=== PATIENT | male | born 1955 | race Caucasian/White ===

== ENCOUNTER 2023-12-02 10:45 | Outpatient (RCR) | payer MEDICARE, SELFPAY ==
[2023-11-11 10:51] VITALS: BP 147/68; PULSE 75; RESP 18; TEMP 36.1; BMI 30.1
--- NOTE | 2023-11-11 11:50 | HP.PCM_ITS ---
History of Present Illness Date of Service: 11/11/23 Chief Complaint: Follow-up for surgical removal of necrotizing fasciitis of perianal and scrotal area. History of Wound: 68-year-old white male on September 22 had surgery at [facility] for necrotizing fasciitis of the perineum and scrotum. Patient states it started about 2 weeks prior that they thought he had a prostate infection and then it just turned started turning black. He has had about 3 surgeries for removal of the necrotic tissue. And at this time is using Vashi to wet-to-dry as treatment. Has been done with antibiotics since mid September according to records. We will reculture today. The area starts in the right scrotum and goes down into the right buttocks cheek near the rectum. We obtained wound cultures today [facility] Home Medications acetaminophen 650 mg tablet,extended release (8 Hour Pain Reliever) 650 mg PO Q4H PRN PRN pain 11/11/23 [History Last Taken Unknown] aspirin 81 mg chewable tablet (Aspirin Childrens) 81 mg PO DAILY 11/11/23 [History Last Taken Unknown] folic acid 1 mg tablet 1 mg PO DAILY 11/11/23 [History Last Taken Unknown] [id number] tablet 1 tab PO DAILY 11/11/23 [History Last Taken Unknown] lisinopril 40 mg tablet 40 mg PO DAILY 11/11/23 [History Last Taken Unknown] ropinirole 2 mg tablet 2 mg PO QHS 11/11/23 [History Last Taken Unknown] thiamine mononitrate (vit B1) 100 mg tablet 100 mg PO DAILY 11/11/23 [History Last Taken Unknown] Allergy/AdvReac Type Severity Reaction Status Date / Time lovastatin Allergy Mild Hives Verified 11/11/23 10:48 Social History Smoking Status: Former smoker ROS Constitutional Constitutional: Reports systems reviewed and no addt'l complaints, except as documented Eyes Eyes: Reports systems reviewed and no addt'l complaints, except as documented ENT HEENT: Reports systems reviewed and no addt'l complaints, except as documented Cardiovascular Cardiovascular: Reports systems reviewed and no addt'l complaints, except as documented Respiratory/Chest Respiratory/Chest: Reports systems reviewed and no addt'l complaints, except as documented Gastrointestinal Gastrointestinal: Reports systems reviewed and no addt'l complaints, except as documented Genitourinary Genitourinary: Reports systems reviewed and no addt'l complaints, except as documented Musculoskeletal Musculoskeletal: Reports systems reviewed and no addt'l complaints, except as documented Integumentary Integumentary: Reports wounds and other Details: Open wound from surgery to the right scrotum to right buttocks cheek Neurologic Neurologic: Reports systems reviewed and no addt'l complaints, except as documented Psychiatric Psychiatric: Reports systems reviewed and no addt'l complaints, except as documented Endocrine Endocrinology: Reports systems reviewed and no addt'l complaints, except as documented Hematologic/Lymphatic Hematologic/Lymphatic: Reports systems reviewed and no addt'l complaints, except as documented Allergic/Immunologic Allergic/Immunologic: Reports systems reviewed and no addt'l complaints, except as documented Vital Signs Vital Signs Vital Signs: 11/11/23 10:51 Temperature 96.9 F L Temperature Source Temporal Pulse Rate 75 Respiratory Rate 18 Blood Pressure 147/68 H Blood Pressure Mean 94 Blood Pressure Source Monitor Blood Pressure Position Semi-Fowlers Blood Pressure Location Left Arm Weight Weight: 210 lb Body Mass Index (BMI) 30.1 Physical Exam Const oriented x3 General Appearance: cooperative Exam Limitations: no limitations HEENT normocephalic Head and Scalp: normal to inspection Face and Sinus: normal facial exam Eyes PERRL Neck full ROM Resp normal respiratory effort Effort and Inspection: able to speak in complete sentences Auscultation: clear to auscultation bilaterally Cardio regular rate and regular rhythm Palpation: normal PMI Rate: regular rate Rhythm: regular rhythm Back/Spine Cervical Spine: cervical ROM normal Extremity normal to inspection Skin Wounds: wounds noted Wound Narrative: Open wound from surgery performed September 25 for necrotizing fasciitis from right scrotum to the right buttocks cheek Neuro oriented x3 Psych Appearance: grossly normal Speech: normal speech Thought Content: normal thought content Judgement: judgement good Debridement Note Debridement Note Post-Debridement Measurements and Additional Note: Post-Debridement Measurements/Treatment - Nurse 1 - General Ulcer Assessment Start: 11/11/23 10:51 Freq: Status: Active Protocol: HARIS Activity Type Activity Date Activity User E-sign Co-sign Detail Recorded Client Recorded Date Recorded By Document 11/11/23 10:51 RB Desktop 11/11/23 10:55 RB 11/11/23 10:51 - Today's Visit Information Type of service Follow-up Visit (Physician/AUTOMOTIVE SOFTWARE ENGINEER ) Arrival Mode Ambulatory Transfer Assistance None Patient Identification Verified (Name & Yes ) Patient Requires Transmission-Based No Precautions Height and Weight Height 5 ft 10 in Weight 210 lb Weight in Pounds 210.0 lbs Body Mass Index (BMI) 30.1 BMI Classification Obese BSA - Laura 2.13 Vital Signs Temperature (97.8 F-99.1 F) 96.9 F L Temperature Source Temporal Pulse Rate (60-100) 75 Pulse Location Monitor Respiratory Rate (12-18) 18 Respiratory rate source Observation Blood Pressure (90/60-120/80) 147/68 H Blood Pressure Mean 94 Source Monitor Position Semi-Fowlers Blood Pressure Location Left Arm Pain Scale: 0-10 Numeric Is Patient Pain Free? Yes Communication Assessment Preferred language Indian Return Agent [place] Required No Able to Read Yes Able to Write Yes Right Hearing Abillity Normal Left Hearing Abillity Normal Visual Assistive Devices Glasses Teaching Assessment Preferences Verbal,Written, Demonstration Readiness To Learn Excellent Willingness to Engage in Self Management Med Activies Readiness to Engage in Self Management Med Activities Anxiety Level Calm Cooperation Cooperative Perception Coherent Interest in Health Problem Asks Questions Education Importance Acknowledges Need Does Patient Smoke tobacco or other No substances Smoking Status Former smoker Functional Assessment Recent Decline in Ability to Perform Denies Any Declines Assistive Device With Patient No Culture/Mormonism/Inside Trucker Cultural/Mormonism Needs that may affect No Treatment Plan Would you allow our hospital boiler operators supervisor to No meet you for the purpose of spiritual/ emotional support? Inside Trucker to contact place of confucianism No Teaching: Wound Center Dressing Your Wound -Person Taught Patient -Teaching Method Discussion, Demonstration -Response to teaching Verbalize understanding - Nurse 1 - General Ulcer Measurement Start: 11/11/23 10:51 Freq: Status: Active Protocol: Activity Type Activity Date Activity User E-sign Co-sign Detail Recorded Client Recorded Date Recorded By Document 11/11/23 10:51 RB Desktop 11/11/23 10:55 RB 11/11/23 10:51 Wound Center Nurse 1 1. scrotum/ R buttocks -Combined with other wound No -Current Size (cm) - Length 13.5 -Current Size (cm) - Width 6 -Current Size (cm) - Depth 3 -Total Square Cm 81.0 -Photo Taken Yes -Tunneling No -Undermining/Tunneling No -Circular Undermining No -Exudate Amt Large -Exudate Type Serosanguineous -Wound Margin Distinct, Outline Attached -Granulation Amt Large (67-100%) -Granulation Quality Red -Slough/Fibrin Yes -Necrosis Amt Medium (34-66%) -Necrotic Tissue Type Adherent Slough -Structure Exposed N/A -Texture (Amelie-wound Skin Appearance) Assessed, Scarring -Moisture (Amelie-wound Skin Appearance) Assessed -Color (Amelie-wound Skin Appearance) Assessed -Temperature (Amelie-wound Skin No Abnormality Appearance) (Pt Warm) -Tenderness on Palpation (Amelie-wound No Skin Appearance) -Ulcer Cleansing Wound Cleanser -Foul Odor after Cleansing No -Anesthetic Used 4% Lidocaine Solution WC - Nurse 2 - General Ulcer CM Notes Start: 11/11/23 10:51 Freq: Status: Active Protocol: Activity Type Activity Date Activity User E-sign Co-sign Detail Recorded Client Recorded Date Recorded By Document 11/11/23 11:15 BM Desktop 11/11/23 11:28 [facility] 11/11/23 11:15 Wound Center Nurse 2 -Time 11:15 -Correct Patient Yes -Correct Side, Site, Position Yes -Correct Procedure Yes -Procedure Performed Yes -Type of Procedure Debridement -Clinical Debridement Subcutaneous -Tissue Removed Subcutaneous -Post Debridement (cm) - Length 15 -Post Debridement (cm) - Width 7 -Post Debridement (cm) - Depth 4.5 -Total Square (Post) (cm) 105 -Area of Debridement (cm) - Length 15 -Area of Debridement (cm) - Width 7 -Total Square (Area) (cm) 105 -Tunneling No -Undermining/Tunneling No -Circular Undermining No -Wound/Ulcer Outcome Not Healed -Ulcer Cleansing Rinsed/ Irrigated with Saline -Foul Odor after Cleansing No -Bioengineered Tissue No -Bleeding Controlled with Pressure -Treatment Response Procedure Tolerated Well -Debridement - Subq, 1st 20sq cm Yes -Debridement, SubQ, ea addt'l 20sq cm 5 or part thereof Pain Scale: 0-10 Numeric Is Patient Pain Free? Yes - Nurse 3 - General Ulcer D/C NN Start: 11/11/23 10:51 Freq: Status: Active Protocol: Activity Type Activity Date Activity User E-sign Co-sign Detail Recorded Client Recorded Date Recorded By Document 11/11/23 11:30 DL Desktop 11/11/23 11:31 DL 11/11/23 11:30 Wound Care Center Nurse 3 1. scrotum/ R buttocks -Ulcer Cleansing Soap and Water -Foul Odor after Cleansing No -Primary Dressing Applied Fibracol Plus 4x4 -Primary Dressing Covered/Secured with Dry Gauze -Other Covering ABD -Fibracol Plus 4x4 1 Treatment Response Procedure Tolerated Well Pain Scale: 0-10 Numeric Is Patient Pain Free? Yes WC - Visit Discharge Discharge Condition Stable Ambulatory Status Ambulatory Transportation Private [facility] Facility Type Home Health Orders Sent Yes Assessment/Plan Assessment/Plan (1) Necrotizing fasciitis: CODE(S): M72.6 - Necrotizing fasciitis (2) Nonhealing surgical wound: CODE(S): T81.89XA - Other complications of procedures, not elsewhere classified, initial encounter QUALIFIERS: Encounter type: initial encounter Qualified Code(s): T81.89XA - Other complications of procedures, not elsewhere classified, initial encounter PLAN: Wash perineal area with antibacterial soap in the shower pat dry Apply Fibracol to wound area cover with gauze and ABDs Daily and follow-up in 1 week Wound cultures obtained will call with results (3) Hyperglycemia due to type 2 diabetes mellitus: CODE(S): E11.65 - Type 2 diabetes mellitus with hyperglycemia QUALIFIERS: Diabetes mellitus intermediate school teacher insulin use: without [facility] use Qualified Code(s): E11.65 - Type 2 diabetes mellitus with hyperglycemia
--- NOTE | 2023-11-16 14:34 | WC ---
SANJEEV AIRBORNE ELECTRONICS ANALYST REVIEWED PTS CX RESULTS. N.O.'S RECEIVED TO START METRONIDAZOLE AND LINEZOLID. ALLERGIES REVIEWED. PT AND HIS SON MIKE MENA CALLED AND UPDATED. RX CALLED TO [facility]. WILL UPDATE [facility].
[2023-11-18 11:06] VITALS: BP 152/76; PULSE 74; RESP 18; TEMP 36.6; BMI 30.1
--- NOTE | 2023-11-18 12:58 | PCM.WC.PN ---
History of Present Illness Date of Service: 11/18/23 Chief Complaint: Follow-up for surgical removal of necrotizing fasciitis of perianal and scrotal area. History of Wound: 68-year-old white male on September 22 had surgery at [facility] for necrotizing fasciitis of the perineum and scrotum. Patient states it started about 2 weeks prior that they thought he had a prostate infection and then it just turned started turning black. He has had about 3 surgeries for removal of the necrotic tissue. And at this time is using Vashi to wet-to-dry as treatment. Has been done with antibiotics since mid September according to records. We will reculture today. The area starts in the right scrotum and goes down into the right buttocks cheek near the rectum. We obtained wound cultures today Progress of Wound: Cultures showed positive cocci and bacteria. Patient has been started on metronidazole and Linzoid.. Tolerating medications well and wound looks 100% better it is smaller there is skin now on his scrotum and it is coming down into his groin area also. Continue using Fibracol and taking the medications. Subjective Subjective Patient states home health care will not do wound care and will not give him products. Patient has been doing his own wound care Objective Data Objective Data Again the wound looks very good measurements are very good much smaller than what they were last week skin is developing and healing Vital Signs: Vital Signs Temp Pulse Resp BP 98 F 74 18 152/76 H 11/18/23 11:06 11/18/23 11:06 11/18/23 11:06 11/18/23 11:06 Weight: 210 lb Body Mass Index (BMI) 30.1 Lab / Micro Data Attestation: I reviewed the patient's lab results. Micro: Microbiology 11/11/23 11:20 Scrotal Abcess Gram Stain - Final 11/11/23 11:20 Scrotal Abcess Wound Culture - Final ESBL Klebsiella pneumoniae pne Corynebacterium striatum Corynebacterium amycolatum Vancomycin Resist. E. faecium 11/11/23 11:20 Scrotal Abcess Anaerobic Culture - Final Bacteroides fragilis Physical Exam Const oriented x3 General Appearance: cooperative Exam Limitations: no limitations HEENT normocephalic Head and Scalp: normal to inspection Face and Sinus: normal facial exam Eyes PERRL Neck full ROM Resp normal respiratory effort Effort and Inspection: able to speak in complete sentences Auscultation: clear to auscultation bilaterally Cardio regular rate and regular rhythm Palpation: normal PMI Rate: regular rate Rhythm: regular rhythm Back/Spine Cervical Spine: cervical ROM normal Extremity normal to inspection Skin Wounds: wounds noted Wound Narrative: Open wound from surgery performed September 25 for necrotizing fasciitis from right scrotum to the right buttocks cheek Neuro oriented x3 Psych Appearance: grossly normal Speech: normal speech Thought Content: normal thought content Judgement: judgement good Debridement Note Debridement Note Wound debrided: Groin cluster Laterality: Right Type of Debridement: Excisional debridement Anesthesia Used: 5% Lidocaine Gel Depth: Down to and including healthy tissue and in the subcutaneous layer Percentage of wound debrided: 100 Instrument Used: 7mm curette Tissue Removed: Fibrin devitalized tissue Severity: Fat Layer Exposed Amount of bleeding with debridement: Mild Bleeding Controlled with: Compression and gauze Patient tolerated procedure: Patient tolerated procedure well Post-Debridement Measurements and Additional Note: Post-Debridement Measurements/Treatment - Nurse 1 - General Ulcer Assessment Start: 11/11/23 10:51 Freq: Status: Active Protocol: HARIS Activity Type Activity Date Activity User E-sign Co-sign Detail Recorded Client Recorded Date Recorded By Document 11/11/23 10:51 Desktop 11/11/23 10:55 RB Document 11/18/23 11:06 wound center 11/18/23 11:07 RB 11/11/23 11/18/23 10:51 11:06 - Today's Visit Information Type of service Follow-up Visit Follow-up Visit (Physician/LIFE ASSURANCE REPRESENTATIVE (Physician/LIFE ASSURANCE REPRESENTATIVE ) ) Arrival Mode Ambulatory Ambulatory Transfer Assistance None None Patient Identification Verified (Name & Yes Yes ) Patient Requires Transmission-Based No No Precautions Height and Weight Height 5 ft 10 in Weight 210 lb Weight in Pounds 210.0 lbs Body Mass Index (BMI) 30.1 30.1 BMI Classification Obese Obese BSA - Laura 2.13 Vital Signs Temperature (97.8 F-99.1 F) 96.9 F L 98 F Temperature Source Temporal Temporal Pulse Rate (60-100) 75 74 Pulse Location Monitor Monitor Respiratory Rate (12-18) 18 18 Respiratory rate source Observation Observation Blood Pressure (90/60-120/80) 147/68 H 152/76 H Blood Pressure Mean (mm Hg) 94 101 Source Monitor Monitor Position Semi-Fowlers Semi-Fowlers Blood Pressure Location Left Arm Left Arm History Since Last Visit- (Skip if this is Patient's initial visit) Have you changed medications since your No last visit? Any new allergies or adverse reactions No Had a fall/change in ADL's that may No increase risk of falls Signs or symptoms of abuse and/or No neglect since last visit Have you been in the hospital since your No last visit? Has dressing in place as prescribed Yes Has compression in place as prescribed No Has offloadiing in place as prescribed No Experienced any changes in pain level or No management Pain Scale: 0-10 Numeric Is Patient Pain Free? Yes Yes Communication Assessment Preferred language Mongolian Manager Training And Development Required No Able to Read Yes Able to Write Yes Right Hearing Abillity Normal Left Hearing Abillity Normal Visual Assistive Devices Glasses Teaching Assessment Preferences Verbal,Written, Demonstration Readiness To Learn Excellent Willingness to Engage in Self Management Med Activies Readiness to Engage in Self Management Med Activities Anxiety Level Calm Cooperation Cooperative Perception Coherent Interest in Health Problem Asks Questions Education Importance Acknowledges Need Does Patient Smoke tobacco or other No substances Smoking Status Former smoker Functional Assessment Recent Decline in Ability to Perform Denies Any Declines Assistive Device With Patient No Culture/Shinto/Wafer Fab Technician Cultural/Shinto Needs that may affect No Treatment Plan Would you allow our hospital lost charge card clerk to No meet you for the purpose of spiritual/ emotional support? Wafer Fab Technician to contact place of protestant No Teaching: Wound Center Dressing Your Wound -Person Taught Patient -Teaching Method Discussion, Demonstration -Response to teaching Verbalize understanding WC - Nurse 1 - General Ulcer Measurement Start: 11/11/23 10:51 Freq: Status: Active Protocol: Activity Type Activity Date Activity User E-sign Co-sign Detail Recorded Client Recorded Date Recorded By Document 11/11/23 10:51 RB Desktop 11/11/23 10:55 RB Document 11/18/23 11:06 RB wound center 11/18/23 11:07 RB 11/11/23 11/18/23 10:51 11:06 Wound Center Nurse 1 1. scrotum/ R buttocks -Combined with other wound No No -Current Size (cm) - Length 13.5 15.5 -Current Size (cm) - Width 6 5 -Current Size (cm) - Depth 3 2.5 -Total Square Cm 81.0 77.5 -Photo Taken Yes -Tunneling No No -Undermining/Tunneling No No -Circular Undermining No No -Exudate Amt Large Large -Exudate Type Serosanguineous Serosanguineous -Wound Margin Distinct, Distinct, Outline Outline Attached Attached -Granulation Amt Large (67-100%) Large (67-100%) -Granulation Quality Red Mckenna,Red -Slough/Fibrin Yes Yes -Necrosis Amt Medium (34-66%) Small (1-33%) -Necrotic Tissue Type Adherent Slough Adherent Slough -Structure Exposed N/A N/A -Texture (Amelie-wound Skin Appearance) Assessed, Assessed, Scarring Scarring -Moisture (Amelie-wound Skin Appearance) Assessed Assessed -Color (Amelie-wound Skin Appearance) Assessed Assessed -Temperature (Amelie-wound Skin No Abnormality No Abnormality Appearance) (Pt Warm) (Pt Warm) -Tenderness on Palpation (Amelie-wound No No Skin Appearance) -Ulcer Cleansing Wound Cleanser Wound Cleanser -Foul Odor after Cleansing No No -Anesthetic Used 4% Lidocaine 4% Lidocaine Solution Solution WC - Nurse 2 - General Ulcer CM Notes Start: 11/11/23 10:51 Freq: Status: Active Protocol: Activity Type Activity Date Activity User E-sign Co-sign Detail Recorded Client Recorded Date Recorded By Document 11/11/23 11:15 [facility] Desktop 11/11/23 11:28 [facility] Document 11/18/23 11:11 [facility] wound center 11/18/23 11:16 [facility] 11/11/23 11/18/23 11:15 11:11 Wound Center Nurse 2 1. scrotum/ R buttocks -Time 11:15 11:11 -Correct Patient Yes Yes -Correct Side, Site, Position Yes Yes -Correct Procedure Yes Yes -Procedure Performed Yes Yes -Type of Procedure Debridement Debridement -Clinical Debridement Subcutaneous Subcutaneous -Tissue Removed Subcutaneous Subcutaneous -Post Debridement (cm) - Length 15 11.5 -Post Debridement (cm) - Width 7 2.5 -Post Debridement (cm) - Depth 4.5 2 -Total Square (Post) (cm) 105 28.75 -Area of Debridement (cm) - Length 15 11.5 -Area of Debridement (cm) - Width 7 2.5 -Total Square (Area) (cm) 105 28.75 -Tunneling No No -Undermining/Tunneling No No -Circular Undermining No No -Wound/Ulcer Outcome Not Healed Not Healed -Ulcer Cleansing Rinsed/ Rinsed/ Irrigated with Irrigated with Saline Saline -Foul Odor after Cleansing No No -Bioengineered Tissue No No -Bleeding Controlled with Pressure Pressure -Treatment Response Procedure Procedure Tolerated Well Tolerated Well -Debridement - Subq, 1st 20sq cm Yes Yes -Debridement, SubQ, ea addt'l 20sq cm 5 9 or part thereof Pain Scale: 0-10 Numeric Is Patient Pain Free? Yes Yes - Nurse 3 - General Ulcer D/C NN Start: 11/11/23 10:51 Freq: Status: Active Protocol: Activity Type Activity Date Activity User E-sign Co-sign Detail Recorded Client Recorded Date Recorded By Document 11/11/23 11:30 DL Desktop 11/11/23 11:31 DL Document 11/18/23 11:29 DL [id number] 11/18/23 11:30 DL 11/11/23 11/18/23 11:30 11:29 Wound Care Center Nurse 3 1. scrotum/ R buttocks -Ulcer Cleansing Soap and Water Soap and Water -Foul Odor after Cleansing No No -Primary Dressing Applied Fibracol Plus Fibracol Plus 4x4 4x4 -Primary Dressing Covered/Secured with Dry Gauze Dry Gauze, Secured with Tape -Other Covering ABD ABD -Fibracol Plus 4x4 1 2 Treatment Response Procedure Procedure Tolerated Well Tolerated Well Pain Scale: 0-10 Numeric Is Patient Pain Free? Yes Yes - Visit Discharge Discharge Condition Stable Stable Ambulatory Status Ambulatory Ambulatory Transportation Private Auto Private [facility] Facility Type Home Health Home Health Orders Sent Yes Yes Assessment/Plan Assessment/Plan (1) Necrotizing fasciitis: CODE(S): M72.6 - Necrotizing fasciitis (2) Nonhealing surgical wound: CODE(S): T81.89XA - Other complications of procedures, not elsewhere classified, initial encounter QUALIFIERS: Encounter type: initial encounter Qualified Code(s): T81.89XA - Other complications of procedures, not elsewhere classified, initial encounter PLAN: Wash perineal area with antibacterial soap in the shower pat dry Apply Fibracol to wound area cover with gauze and ABDs Daily and follow-up in 1 week (3) Hyperglycemia due to type 2 diabetes mellitus: CODE(S): E11.65 - Type 2 diabetes mellitus with hyperglycemia QUALIFIERS: Diabetes mellitus manager terminal insulin use: without manager terminal use Qualified Code(s): E11.65 - Type 2 diabetes mellitus with hyperglycemia (4) Infected open wound: CODE(S): T14.8XXA - Other injury of unspecified body region, initial encounter; L08.9 - Local infection of the skin and subcutaneous tissue, unspecified PLAN: Taking metronidazole 250 mg 3 times daily for 14 days and Lenzoid 600 mg twice daily for 10 days Tolerating antibiotic therapy well
[2023-11-25 10:58] VITALS: BP 122/66; PULSE 83; RESP 18; TEMP 36.1; BMI 30.1
--- NOTE | 2023-11-25 12:48 | PN.PCM_ITS ---
History of Present Illness Date of Service: 11/25/23 Chief Complaint: Follow-up for surgical removal of necrotizing fasciitis of perianal and scrotal area. History of Wound: 68-year-old white male on September 22 had surgery at [facility] for necrotizing fasciitis of the perineum and scrotum. Patient states it started about 2 weeks prior that they thought he had a prostate infection and then it just turned started turning black. He has had about 3 surgeries for removal of the necrotic tissue. And at this time is using Vashi to wet-to-dry as treatment. Has been done with antibiotics since mid September according to records. We will reculture today. The area starts in the right scrotum and goes down into the right buttocks cheek near the rectum. We obtained wound cultures today Progress of Wound: Cultures showed positive cocci and bacteria. Patient has been started on metronidazole and Linzoid.. Tolerating medications well and wound looks 100% better it is smaller there is skin now on his scrotum and it is coming down into his groin area also. Continue using Fibracol and taking the medications. Continues to improve every week Subjective Subjective Patient is pleased with outcomes Objective Data Objective Data Doing really well getting a lot of skin buds and getting skin over the scrotal sac and down into the groin. Vital Signs: Vital Signs Temp Pulse Resp BP 97 F L 83 18 122/66 H 11/25/23 10:58 11/25/23 10:58 11/25/23 10:58 11/25/23 10:58 Weight: 210 lb Body Mass Index (BMI) 30.1 Lab / Micro Data Micro: Microbiology 11/11/23 11:20 Scrotal Abcess Gram Stain - Final 11/11/23 11:20 Scrotal Abcess Wound Culture - Final ESBL Klebsiella pneumoniae pne Corynebacterium striatum Corynebacterium amycolatum Vancomycin Resist. E. faecium 11/11/23 11:20 Scrotal Abcess Anaerobic Culture - Final Bacteroides fragilis Physical Exam Const oriented x3 General Appearance: cooperative Exam Limitations: no limitations HEENT normocephalic Head and Scalp: normal to inspection Face and Sinus: normal facial exam Eyes PERRL Neck full ROM Resp normal respiratory effort Effort and Inspection: able to speak in complete sentences Auscultation: clear to auscultation bilaterally Cardio regular rate and regular rhythm Palpation: normal PMI Rate: regular rate Rhythm: regular rhythm Back/Spine Cervical Spine: cervical ROM normal Extremity normal to inspection Skin Wounds: wounds noted Wound Narrative: Open wound from surgery performed September 25 for necrotizing fasciitis from right scrotum to the right buttocks cheek Neuro oriented x3 Psych Appearance: grossly normal Speech: normal speech Thought Content: normal thought content Judgement: judgement good Debridement Note Debridement Note Wound debrided: Groin cluster Laterality: Right Type of Debridement: Excisional debridement Anesthesia Used: 5% Lidocaine Gel Depth: Down to and including healthy tissue and in the subcutaneous layer Percentage of wound debrided: 100 Instrument Used: 7mm curette Tissue Removed: Fibrin devitalized tissue Severity: Fat Layer Exposed Amount of bleeding with debridement: Mild Bleeding Controlled with: Compression and gauze Patient tolerated procedure: Patient tolerated procedure well Post-Debridement Measurements and Additional Note: Post-Debridement Measurements/Treatment - Nurse 1 - General Ulcer Assessment Start: 11/11/23 10:51 Freq: Status: Active Protocol: HARIS Activity Type Activity Date Activity User E-sign Co-sign Detail Recorded Client Recorded Date Recorded By Document 11/11/23 10:51 Desktop 11/11/23 10:55 RB Document 11/18/23 11:06 RB wound center 11/18/23 11:07 RB Document 11/25/23 10:58 RB wound center 11/25/23 11:00 RB 11/11/23 11/18/23 11/25/23 10:51 11:06 10:58 - Today's Visit Information Type of service Follow-up Visit Follow-up Visit Follow-up Visit (Physician/SPLIT LEATHER DEPARTMENT SUPERVISOR (Physician/SPLIT LEATHER DEPARTMENT SUPERVISOR (Physician/SPLIT LEATHER DEPARTMENT SUPERVISOR ) ) ) Arrival Mode Ambulatory Ambulatory Ambulatory Transfer Assistance None None None Patient Identification Verified (Name & Yes Yes Yes ) Patient Requires Transmission-Based No No No Precautions Height and Weight Height 5 ft 10 in Weight 210 lb Weight in Pounds 210.0 lbs Body Mass Index (BMI) 30.1 30.1 30.1 BMI Classification Obese Obese Obese BSA - Laura 2.13 Vital Signs Temperature (97.8 F-99.1 F) 96.9 F L 98 F 97 F L Temperature Source Temporal Temporal Temporal Pulse Rate (60-100) 75 74 83 Pulse Location Monitor Monitor Monitor Respiratory Rate (12-18) 18 18 18 Respiratory rate source Observation Observation Observation Blood Pressure (90/60-120/80) 147/68 H 152/76 H 122/66 H Blood Pressure Mean (mm Hg) 94 101 84 Source Monitor Monitor Monitor Position Semi-Fowlers Semi-Fowlers Semi-Fowlers Blood Pressure Location Left Arm Left Arm Right Arm History Since Last Visit- (Skip if this is Patient's initial visit) Have you changed medications since your No No last visit? Any new allergies or adverse reactions No No Had a fall/change in ADL's that may No No increase risk of falls Signs or symptoms of abuse and/or No No neglect since last visit Have you been in the hospital since your No No last visit? Has dressing in place as prescribed Yes Yes Has compression in place as prescribed No No Has offloadiing in place as prescribed No No Experienced any changes in pain level or No No management Pain Scale: 0-10 Numeric Is Patient Pain Free? Yes Yes Yes Communication Assessment Preferred language [employer] [employer] Service Team Member Required No Able to Read Yes Able to Write Yes Right Hearing Abillity Normal Left Hearing Abillity Normal Visual Assistive Devices Glasses Teaching Assessment Preferences Verbal,Written, Demonstration Readiness To Learn Excellent Willingness to Engage in Self Management Med Activies Readiness to Engage in Self Management Med Activities Anxiety Level Calm Cooperation Cooperative Perception Coherent Interest in Health Problem Asks Questions Education Importance Acknowledges Need Does Patient Smoke tobacco or other No substances Smoking Status Former smoker Functional Assessment Recent Decline in Ability to Perform Denies Any Declines Assistive Device With Patient No Culture/Anabaptist/Shopping Centre Manager Cultural/Anabaptist Needs that may affect No Treatment Plan Would you allow our hospital financial reserve clerk to No meet you for the purpose of spiritual/ emotional support? Shopping Centre Manager to contact place of episcopal No Teaching: Wound Center Dressing Your Wound -Person Taught Patient -Teaching Method Discussion, Demonstration -Response to teaching Verbalize understanding WC - Nurse 1 - General Ulcer Measurement Start: 11/11/23 10:51 Freq: Status: Active Protocol: Activity Type Activity Date Activity User E-sign Co-sign Detail Recorded Client Recorded Date Recorded By Document 11/11/23 10:51 RB Desktop 11/11/23 10:55 RB Document 11/18/23 11:06 RB wound center 11/18/23 11:07 RB Document 11/25/23 10:58 RB wound center 11/25/23 11:00 RB 11/11/23 11/18/23 11/25/23 10:51 11:06 10:58 Wound Center Nurse 1 1. scrotum/ R buttocks -Combined with other wound No No No -Current Size (cm) - Length 13.5 15.5 11.5 -Current Size (cm) - Width 6 5 2.8 -Current Size (cm) - Depth 3 2.5 2 -Total Square Cm 81.0 77.5 32.20 -Photo Taken Yes -Tunneling No No No -Undermining/Tunneling No No No -Circular Undermining No No No -Exudate Amt Large Large Large -Exudate Type Serosanguineous Serosanguineous Serosanguineous -Wound Margin Distinct, Distinct, Distinct, Outline Outline Outline Attached Attached Attached -Granulation Amt Large (67-100%) Large (67-100%) Large (67-100%) -Granulation Quality Red [place],Red [place],Red -Slough/Fibrin Yes Yes Yes -Necrosis Amt Medium (34-66%) Small (1-33%) Small (1-33%) -Necrotic Tissue Type Adherent Slough Adherent Slough Adherent Slough -Structure Exposed N/A N/A N/A -Texture (Amelie-wound Skin Appearance) Assessed, Assessed, Assessed, Scarring Scarring Scarring -Moisture (Amelie-wound Skin Appearance) Assessed Assessed Assessed -Color (Amelie-wound Skin Appearance) Assessed Assessed Assessed -Temperature (Amelie-wound Skin No Abnormality No Abnormality No Abnormality Appearance) (Pt Warm) (Pt Warm) (Pt Warm) -Tenderness on Palpation (Amelie-wound No No No Skin Appearance) -Ulcer Cleansing Wound Cleanser Wound Cleanser Wound Cleanser -Foul Odor after Cleansing No No No -Anesthetic Used 4% Lidocaine 4% Lidocaine 4% Lidocaine Solution Solution Solution WC - Nurse 2 - General Ulcer CM Notes Start: 11/11/23 10:51 Freq: Status: Active Protocol: Activity Type Activity Date Activity User E-sign Co-sign Detail Recorded Client Recorded Date Recorded By Document 11/11/23 11:15 [facility] Desktop 11/11/23 11:28 [facility] Document 11/18/23 11:11 [facility] wound center 11/18/23 11:16 [facility] Document 11/25/23 11:05 [facility] [id number] 11/25/23 11:11 [facility] 05/02/2611/18/23 11/25/23 11:15 11:11 11:05 Wound Center Nurse 2 1. scrotum/ R buttocks -Time 11:15 11:11 11:05 -Correct Patient Yes Yes Yes -Correct Side, Site, Position Yes Yes Yes -Correct Procedure Yes Yes Yes -Procedure Performed Yes Yes Yes -Type of Procedure Debridement Debridement Debridement -Clinical Debridement Subcutaneous Subcutaneous Subcutaneous -Tissue Removed Subcutaneous Subcutaneous Subcutaneous -Post Debridement (cm) - Length 15 11.5 14.5 -Post Debridement (cm) - Width 7 2.5 3 -Post Debridement (cm) - Depth 4.5 2 0.1 -Total Square (Post) (cm) 105 28.75 43.5 -Area of Debridement (cm) - Length 15 11.5 14.5 -Area of Debridement (cm) - Width 7 2.5 3 -Total Square (Area) (cm) 105 28.75 43.5 -Tunneling No No No -Undermining/Tunneling No No No -Circular Undermining No No No -Wound/Ulcer Outcome Not Healed Not Healed Not Healed -Ulcer Cleansing Rinsed/ Rinsed/ Rinsed/ Irrigated with Irrigated with Irrigated with Saline Saline Saline -Foul Odor after Cleansing No No No -Bioengineered Tissue No No No -Bleeding Controlled with Pressure Pressure Pressure -Treatment Response Procedure Procedure Procedure Tolerated Well Tolerated Well Tolerated Well -Offloading No -Debridement - Subq, 1st 20sq cm Yes Yes Yes -Debridement, SubQ, ea addt'l 20sq cm 5 9 2 or part thereof Pain Scale: 0-10 Numeric Is Patient Pain Free? Yes Yes Yes - Nurse 3 - General Ulcer D/C NN Start: 11/11/23 10:51 Freq: Status: Active Protocol: Activity Type Activity Date Activity User E-sign Co-sign Detail Recorded Client Recorded Date Recorded By Document 11/11/23 11:30 DL Desktop 11/11/23 11:31 DL Document 11/18/23 11:29 DL [id number] 11/18/23 11:30 DL Document 11/25/23 11:13 [facility] [id number] 11/25/23 11:13 [facility] 11/11/23 11/18/23 11/25/23 11:30 11:29 11:13 Wound Care Center Nurse 3 1. 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 Yes Yes Yes WC - Visit Discharge Discharge Condition Stable Stable Stable Ambulatory Status Ambulatory Ambulatory Ambulatory Transportation Private Auto Private Auto Private Auto Facility Type Home Health Home Health Home Health Orders Sent Yes Yes Assessment/Plan Assessment/Plan (1) Necrotizing fasciitis: CODE(S): M72.6 - Necrotizing fasciitis (2) Nonhealing surgical wound: CODE(S): T81.89XA - Other complications of procedures, not elsewhere classified, initial encounter QUALIFIERS: Encounter type: initial encounter Qualified Code(s): T81.89XA - Other complications of procedures, not elsewhere classified, initial encounter PLAN: Wash perineal area with antibacterial soap in the shower pat dry Apply Fibracol to wound area cover with gauze and ABDs Daily and follow-up in 1 week (3) Hyperglycemia due to type 2 diabetes mellitus: CODE(S): E11.65 - Type 2 diabetes mellitus with hyperglycemia QUALIFIERS: Diabetes mellitus penitentiary insulin use: without buttermaker use Qualified Code(s): E11.65 - Type 2 diabetes mellitus with hyperglycemia (4) Infected open wound: CODE(S): T14.8XXA - Other injury of unspecified body region, initial encounter; L08.9 - Local infection of the skin and subcutaneous tissue, unspecified PLAN: Continue taking metronidazole 250 mg 3 times daily for 14 days and Lenzoid 600 mg twice daily for 10 days Tolerating antibiotic therapy well
[2023-12-02 11:27] VITALS: BP 150/60; PULSE 56; RESP 18; TEMP 35.9; BMI 30.1
--- NOTE | 2023-12-02 13:35 | PCM.WC.PN ---
History of Present Illness Date of Service: 12/02/23 Chief Complaint: Follow-up for surgical removal of necrotizing fasciitis of perianal and scrotal area. History of Wound: 68-year-old white male on September 22 had surgery at [facility] for necrotizing fasciitis of the perineum and scrotum. Patient states it started about 2 weeks prior that they thought he had a prostate infection and then it just turned started turning black. He has had about 3 surgeries for removal of the necrotic tissue. And at this time is using Vashi to wet-to-dry as treatment. Has been done with antibiotics since mid September according to records. We will reculture today. The area starts in the right scrotum and goes down into the right buttocks cheek near the rectum. We obtained wound cultures today Progress of Wound: Cultures showed positive cocci and bacteria. Patient has been started on metronidazole and Linzoid.. Tolerating medications well and wound looks 100% better it is smaller there is skin now on his scrotum and it is coming down into his groin area also. Continue using Fibracol and taking the medications. Continues to improve every week Subjective Subjective Patient is pleased with outcomes and sees a Objective Data Objective Data As stated above edging is healing well and creeping across with good approximation of getting some tissue across the scrotum and into the groin area. There are beads of new skin apparent. All is beefy red. Debrided edges very well so skin will come across patient denies any pain and is doing well with dressings. Vital Signs: Vital Signs Temp Pulse Resp BP 96.6 F L 56 L 18 150/60 H 12/02/23 11:27 12/02/23 11:27 12/02/23 11:27 12/02/23 11:27 Weight: 210 lb Body Mass Index (BMI) 30.1 Lab / Micro Data Attestation: I reviewed the patient's lab results. Micro: Microbiology 11/11/23 11:20 Scrotal Abcess Gram Stain - Final 11/11/23 11:20 Scrotal Abcess Wound Culture - Final ESBL Klebsiella pneumoniae pne Corynebacterium striatum Corynebacterium amycolatum Vancomycin Resist. E. faecium 11/11/23 11:20 Scrotal Abcess Anaerobic Culture - Final Bacteroides fragilis Physical Exam Const oriented x3 General Appearance: cooperative Exam Limitations: no limitations HEENT normocephalic Head and Scalp: normal to inspection Face and Sinus: normal facial exam Eyes PERRL Neck full ROM Resp normal respiratory effort Effort and Inspection: able to speak in complete sentences Auscultation: clear to auscultation bilaterally Cardio regular rate and regular rhythm Palpation: normal PMI Rate: regular rate Rhythm: regular rhythm Back/Spine Cervical Spine: cervical ROM normal Extremity normal to inspection Skin Wounds: wounds noted Wound Narrative: Open wound from surgery performed September 25 for necrotizing fasciitis from right scrotum to the right buttocks cheek Neuro oriented x3 Psych Appearance: grossly normal Speech: normal speech Thought Content: normal thought content Judgement: judgement good Debridement Note Debridement Note Wound debrided: Groin cluster Laterality: Right Type of Debridement: Excisional debridement Anesthesia Used: 5% Lidocaine Gel Depth: Down to and including healthy tissue and in the subcutaneous layer Percentage of wound debrided: 100 Instrument Used: 7mm curette Tissue Removed: Fibrin devitalized tissue Severity: Fat Layer Exposed Amount of bleeding with debridement: Mild Bleeding Controlled with: Compression and gauze Patient tolerated procedure: Patient tolerated procedure well Post-Debridement Measurements and Additional Note: Post-Debridement Measurements/Treatment [facility] Nurse 1 - General Ulcer Assessment Start: 11/11/23 10:51 Freq: Status: Active Protocol: HARIS Activity Type Activity Date Activity User E-sign Co-sign Detail Recorded Client Recorded Date Recorded By Document 11/11/23 10:51 Desktop 11/11/23 10:55 RB Document 11/18/23 11:06 RB wound center 11/18/23 11:07 RB Document 11/25/23 10:58 wound center 11/25/23 11:00 RB Document 12/02/23 11:27 wound cnter 12/02/23 11:34 RB 11/11/23 11/18/23 11/25/23 10:51 11:06 10:58 - Today's Visit Information Type of service Follow-up Visit Follow-up Visit Follow-up Visit (Physician/ATM MANAGER (Physician/ATM MANAGER (Physician/ATM MANAGER ) ) ) Arrival Mode Ambulatory Ambulatory Ambulatory Transfer Assistance None None None Patient Identification Verified (Name & Yes Yes Yes ) Patient Requires Transmission-Based No No No Precautions Height and Weight Height 5 ft 10 in Weight 210 lb Weight in Pounds 210.0 lbs Body Mass Index (BMI) 30.1 30.1 30.1 BMI Classification Obese Obese Obese BSA - Laura 2.13 Vital Signs Temperature (97.8 F-99.1 F) 96.9 F L 98 F 97 F L Temperature Source Temporal Temporal Temporal Pulse Rate (60-100) 75 74 83 Pulse Location Monitor Monitor Monitor Respiratory Rate (12-18) 18 18 18 Respiratory rate source Observation Observation Observation Blood Pressure (90/60-120/80) 147/68 H 152/76 H 122/66 H Blood Pressure Mean (mm Hg) 94 101 84 Source Monitor Monitor Monitor Position Semi-Fowlers Semi-Fowlers Semi-Fowlers Blood Pressure Location Left Arm Left Arm Right Arm History Since Last Visit- (Skip if this is Patient's initial visit) Have you changed medications since your No No last visit? Any new allergies or adverse reactions No No Had a fall/change in ADL's that may No No increase risk of falls Signs or symptoms of abuse and/or No No neglect since last visit Have you been in the hospital since your No No last visit? Has dressing in place as prescribed Yes Yes Has compression in place as prescribed No No Has offloadiing in place as prescribed No No Experienced any changes in pain level or No No management Pain Scale: 0-10 Numeric Is Patient Pain Free? Yes Yes Yes Communication Assessment Preferred language Upper Sorbian [employer] Pipe Offbearer Required No Able to Read Yes Able to Write Yes Right Hearing Abillity Normal Left Hearing Abillity Normal Visual Assistive Devices Glasses Teaching Assessment Preferences Verbal,Written, Demonstration Readiness To Learn Excellent Willingness to Engage in Self Management Med Activies Readiness to Engage in Self Management Med Activities Anxiety Level Calm Cooperation Cooperative Perception Coherent Interest in Health Problem Asks Questions Education Importance Acknowledges Need Does Patient Smoke tobacco or other No substances Smoking Status Former smoker Functional Assessment Recent Decline in Ability to Perform Denies Any Declines Assistive Device With Patient No Culture/Sabianism/Credit Rating Checker Cultural/Sabianism Needs that may affect No Treatment Plan Would you allow our hospital service unit operator to No meet you for the purpose of spiritual/ emotional support? Credit Rating Checker to contact place of spiritism No Teaching: Wound Center Dressing Your Wound -Person Taught Patient -Teaching Method Discussion, Demonstration -Response to teaching Verbalize understanding 12/02/23 11:27 WC - Today's Visit Information Type of service Follow-up Visit (Physician/ATM MANAGER ) Arrival Mode Ambulatory Transfer Assistance None Patient Identification Verified (Name & Yes ) Patient Requires Transmission-Based No Precautions Height and Weight Height Weight Weight in Pounds Body Mass Index (BMI) 30.1 BMI Classification Obese BSA - Laura Vital Signs Temperature (97.8 F-99.1 F) 96.6 F L Temperature Source Temporal Pulse Rate (60-100) 56 L Pulse Location Monitor Respiratory Rate (12-18) 18 Respiratory rate source Observation Blood Pressure (90/60-120/80) 150/60 H Blood Pressure Mean (mm Hg) 90 Source Monitor Position Semi-Fowlers Blood Pressure Location Left Arm History Since Last Visit- (Skip if this is Patient's initial visit) Have you changed medications since your No last visit? Any new allergies or adverse reactions No Had a fall/change in ADL's that may No increase risk of falls Signs or symptoms of abuse and/or No neglect since last visit Have you been in the hospital since your No last visit? Has dressing in place as prescribed Yes Has compression in place as prescribed No Has offloadiing in place as prescribed No Experienced any changes in pain level or No management Pain Scale: 0-10 Numeric Is Patient Pain Free? Yes Communication Assessment Preferred sign language translator Required Able to Read Able to Write Right Hearing Abillity Left Hearing Abillity Visual Assistive Devices Teaching Assessment Preferences Readiness To Learn Willingness to Engage in Self Management Activies Readiness to Engage in Self Management Activities Anxiety Level Cooperation Perception Interest in Health Problem Education Importance Does Patient Smoke tobacco or other substances Smoking Status Functional Assessment Recent Decline in Ability to Perform Assistive Device With Patient Culture/Sabianism/Credit Rating Checker Cultural/Sabianism Needs that may affect Treatment Plan Would you allow our hospital service unit operator to meet you for the purpose of spiritual/ emotional support? Credit Rating Checker to contact place of spiritism Teaching: Wound Center Dressing Your Wound -Person Taught -Teaching Method -Response to teaching WC - Nurse 1 - General Ulcer Measurement Start: 11/11/23 10:51 Freq: Status: Active Protocol: Activity Type Activity Date Activity User E-sign Co-sign Detail Recorded Client Recorded Date Recorded By Document 11/11/23 10:51 RB Desktop 11/11/23 10:55 RB Document 11/18/23 11:06 RB wound center 11/18/23 11:07 RB Document 11/25/23 10:58 RB wound center 11/25/23 11:00 RB Document 12/02/23 11:27 RB wound cnter 12/02/23 11:34 RB 11/11/23 11/18/23 11/25/23 10:51 11:06 10:58 Wound Center Nurse 1 1. scrotum/ R buttocks -Combined with other wound No No No -Current Size (cm) - Length 13.5 15.5 11.5 -Current Size (cm) - Width 6 5 2.8 -Current Size (cm) - Depth 3 2.5 2 -Total Square Cm 81.0 77.5 32.20 -Photo Taken Yes -Tunneling No No No -Undermining/Tunneling No No No -Circular Undermining No No No -Exudate Amt Large Large Large -Exudate Type Serosanguineous Serosanguineous Serosanguineous -Wound Margin Distinct, Distinct, Distinct, Outline Outline Outline Attached Attached Attached -Granulation Amt Large (67-100%) Large (67-100%) Large (67-100%) -Granulation Quality Red Ahmeek,Red Ahmeek,Red -Slough/Fibrin Yes Yes Yes -Necrosis Amt Medium (34-66%) Small (1-33%) Small (1-33%) -Necrotic Tissue Type Adherent Slough Adherent Slough Adherent Slough -Structure Exposed N/A N/A N/A -Texture (Amelie-wound Skin Appearance) Assessed, Assessed, Assessed, Scarring Scarring Scarring -Moisture (Amelie-wound Skin Appearance) Assessed Assessed Assessed -Color (Amelie-wound Skin Appearance) Assessed Assessed Assessed -Temperature (Amelie-wound Skin No Abnormality No Abnormality No Abnormality Appearance) (Pt Warm) (Pt Warm) (Pt Warm) -Tenderness on Palpation (Amelie-wound No No No Skin Appearance) -Ulcer Cleansing Wound Cleanser Wound Cleanser Wound Cleanser -Foul Odor after Cleansing No No No -Anesthetic Used 4% Lidocaine 4% Lidocaine 4% Lidocaine Solution Solution Solution 12/02/23 11:27 Wound Center Nurse 1 1. scrotum/ R buttocks -Combined with other wound No -Current Size (cm) - Length 12.5 -Current Size (cm) - Width 3 -Current Size (cm) - Depth 0.1 -Total Square Cm 37.5 -Photo Taken -Tunneling No -Undermining/Tunneling No -Circular Undermining No -Exudate Amt Large -Exudate Type Serosanguineous -Wound Margin Distinct, Outline Attached -Granulation Amt Medium (34-66%) -Granulation Quality Ahmeek -Slough/Fibrin Yes -Necrosis Amt Medium (34-66%) -Necrotic Tissue Type Adherent Slough -Structure Exposed N/A -Texture (Amelie-wound Skin Appearance) Assessed, Scarring -Moisture (Amelie-wound Skin Appearance) Assessed -Color (Amelie-wound Skin Appearance) Assessed -Temperature (Amelie-wound Skin No Abnormality Appearance) (Pt Warm) -Tenderness on Palpation (Amelie-wound No Skin Appearance) -Ulcer Cleansing Wound Cleanser -Foul Odor after Cleansing No -Anesthetic Used 4% Lidocaine Solution WC - Nurse 2 - General Ulcer CM Notes Start: 11/11/23 10:51 Freq: Status: Active Protocol: Activity Type Activity Date Activity User E-sign Co-sign Detail Recorded Client Recorded Date Recorded By Document 11/11/23 11:15 [facility] Desktop 11/11/23 11:28 [facility] Document 11/18/23 11:11 [facility] wound center 11/18/23 11:16 [facility] Document 11/25/23 11:05 [facility] [id number] 11/25/23 11:11 [facility] Document 12/02/23 11:52 [place] [id number] 12/02/23 11:54 DS 11/11/23 11/18/23 11/25/23 11:15 11:11 11:05 Wound Center Nurse 2 1. scrotum/ R buttocks -Time 11:15 11:11 11:05 -Correct Patient Yes Yes Yes -Correct Side, Site, Position Yes Yes Yes -Correct Procedure Yes Yes Yes -Procedure Performed Yes Yes Yes -Type of Procedure Debridement Debridement Debridement -Clinical Debridement Subcutaneous Subcutaneous Subcutaneous -Tissue Removed Subcutaneous Subcutaneous Subcutaneous -Post Debridement (cm) - Length 15 11.5 14.5 -Post Debridement (cm) - Width 7 2.5 3 -Post Debridement (cm) - Depth 4.5 2 0.1 -Total Square (Post) (cm) 105 28.75 43.5 -Area of Debridement (cm) - Length 15 11.5 14.5 -Area of Debridement (cm) - Width 7 2.5 3 -Total Square (Area) (cm) 105 28.75 43.5 -Tunneling No No No -Undermining/Tunneling No No No -Circular Undermining No No No -Wound/Ulcer Outcome Not Healed Not Healed Not Healed -Ulcer Cleansing Rinsed/ Rinsed/ Rinsed/ Irrigated with Irrigated with Irrigated with Saline Saline Saline -Foul Odor after Cleansing No No No -Bioengineered Tissue No No No -Bleeding Controlled with Pressure Pressure Pressure -Treatment Response Procedure Procedure Procedure Tolerated Well Tolerated Well Tolerated Well -Offloading No -Debridement - Subq, 1st 20sq cm Yes Yes Yes -Debridement, SubQ, ea addt'l 20sq cm 5 9 2 or part thereof Pain Scale: 0-10 Numeric Is Patient Pain Free? Yes Yes Yes 12/02/23 11:52 Wound Center Nurse 2 1. scrotum/ R buttocks -Time 11:52 -Correct Patient Yes -Correct Side, Site, Position Yes -Correct Procedure Yes -Procedure Performed Yes -Type of Procedure Debridement -Clinical Debridement Subcutaneous -Tissue Removed Epidermis, Subcutaneous -Post Debridement (cm) - Length 14.5 -Post Debridement (cm) - Width 2.5 -Post Debridement (cm) - Depth 0.1 -Total Square (Post) (cm) 36.25 -Area of Debridement (cm) - Length 14.5 -Area of Debridement (cm) - Width 2.5 -Total Square (Area) (cm) 36.25 -Tunneling No -Undermining/Tunneling No -Circular Undermining No -Wound/Ulcer Outcome Not Healed -Ulcer Cleansing Rinsed/ Irrigated with Saline -Foul Odor after Cleansing -Bioengineered Tissue -Bleeding Controlled with Pressure -Treatment Response Procedure Tolerated Well -Offloading -Debridement - Subq, 1st 20sq cm Yes -Debridement, SubQ, ea addt'l 20sq cm 1 or part thereof Pain Scale: 0-10 Numeric Is Patient Pain Free? Yes - Nurse 3 - General Ulcer D/C NN Start: 11/11/23 10:51 Freq: Status: Active Protocol: Activity Type Activity Date Activity User E-sign Co-sign Detail Recorded Client Recorded Date Recorded By Document 11/11/23 11:30 DL Desktop 11/11/23 11:31 DL Document 11/18/23 11:29 DL [id number] 11/18/23 11:30 DL Document 11/25/23 11:13 [facility] [id number] 11/25/23 11:13 [facility] Document 12/02/23 12:03 DL [id number] 12/02/23 12:04 DL 11/11/23 11/18/23 11/25/23 11:30 11:29 11:13 Wound Care Center Nurse 3 1. scrotum/ R buttocks -Ulcer Cleansing Soap and Water Soap and Water Rinsed/ Irrigated with Saline -Foul Odor after Cleansing No No No -Primary Dressing Applied Fibracol Plus Fibracol Plus Fibracol Plus 4x4 4x4 4x4 -Other Dressing ABD -Primary Dressing Covered/Secured with Dry Gauze Dry Gauze, Dry Gauze, Secured with Secured with Tape Tape -Other Covering ABD ABD DRSG PER DL APPOINTMENT SPECIALIST -Fibracol Plus 4x4 1 2 1 Treatment Response Procedure Procedure Procedure Tolerated Well Tolerated Well Tolerated Well Pain Scale: 0-10 Numeric Is Patient Pain Free? Yes Yes Yes WC - Visit Discharge Discharge Condition Stable Stable Stable Ambulatory Status Ambulatory Ambulatory Ambulatory Transportation Private [facility] Facility Type Home Health Home Health Home Health Orders Sent Yes Yes 12/02/23 12:03 Wound Care Center Nurse 3 1. scrotum/ R buttocks -Ulcer Cleansing Soap and Water -Foul Odor after Cleansing No -Primary Dressing Applied Fibracol Plus 4x4 -Other Dressing -Primary Dressing Covered/Secured with Dry Gauze, Secured with Tape -Other Covering -Fibracol Plus 4x4 1 Treatment Response Procedure Tolerated Well Pain Scale: 0-10 Numeric Is Patient Pain Free? Yes WC - Visit Discharge Discharge Condition Stable Ambulatory Status Ambulatory Transportation Private [facility] Facility Type Home Health Orders Sent Yes Assessment/Plan Assessment/Plan (1) Necrotizing fasciitis: CODE(S): M72.6 - Necrotizing fasciitis (2) Nonhealing surgical wound: CODE(S): T81.89XA - Other complications of procedures, not elsewhere classified, initial encounter QUALIFIERS: Encounter type: initial encounter Qualified Code(s): T81.89XA - Other complications of procedures, not elsewhere classified, initial encounter PLAN: Wash perineal area with antibacterial soap in the shower pat dry Apply Fibracol to wound area cover with gauze and ABDs Daily and follow-up in 1 week (3) Hyperglycemia due to type 2 diabetes mellitus: CODE(S): E11.65 - Type 2 diabetes mellitus with hyperglycemia QUALIFIERS: Diabetes mellitus termination clerk insulin use: without termination clerk use Qualified Code(s): E11.65 - Type 2 diabetes mellitus with hyperglycemia (4) Infected open wound: CODE(S): T14.8XXA - Other injury of unspecified body region, initial encounter; L08.9 - Local infection of the skin and subcutaneous tissue, unspecified PLAN: Will continue monitoring patient for any kind of infection
== END 2023-12-04 23:59 | disposition home or self-care (01) ==
LOC: WC 10:45
PROVIDERS: PCP Family Medicine; Referring Provider Family Medicine; Visit Provider Nurse Practitioner
DX: M72.6 Necrotizing fasciitis (principal); E11.65 Type 2 diabetes mellitus with hyperglycemia; Z79.82 Long term (current) use of aspirin; Z87.891 Personal history of nicotine dependence; T81.89XA Other complications of procedures, not elsewhere classified, initial encounter; Z79.899 Other long term (current) drug therapy; Y84.9 Medical procedure, unspecified as the cause of abnormal reaction of the patient, or of later complication, without mention of misadventure at the time of the procedure; T14.8XXA Other injury of unspecified body region, initial encounter
CPT/HCPCS: 11042; 11045; 87070; 87075; 87077; 87186; 87205; 99204; G0463

== ENCOUNTER 2023-12-30 10:30 | Outpatient (RCR) | payer MEDICARE, SELFPAY ==
[2023-12-05 01:19] VITALS: BP 150/60; PULSE 56; RESP 18; TEMP 35.9; BMI 30.1
[2023-12-09 11:17] VITALS: BP 142/60; PULSE 60; RESP 18; TEMP 36.6; BMI 30.1
--- NOTE | 2023-12-09 11:25 | PN.PCM_ITS ---
History of Present Illness Date of Service: 12/09/23 Chief Complaint: Follow-up for surgical removal of necrotizing fasciitis of perianal and scrotal area. History of Wound: 68-year-old white male on September 22 had surgery at [facility] for necrotizing fasciitis of the perineum and scrotum. Patient states it started about 2 weeks prior that they thought he had a prostate infection and then it just turned started turning black. He has had about 3 surgeries for removal of the necrotic tissue. And at this time is using Vashi to wet-to-dry as treatment. Has been done with antibiotics since mid September according to records. We will reculture today. The area starts in the right scrotum and goes down into the right buttocks cheek near the rectum. We obtained wound cultures today Progress of Wound: The area that was infected is continues to be smaller he just needs more skin on top that is filling in nicely. He has no sign of infections and his pain is not there. Subjective Subjective Patient is agreeable with plan of care Objective Data Objective Data Again measurements are smaller no sign of infections seems to tolerate the Fibracol well has no issues with it Vital Signs: Vital Signs Temp Pulse Resp BP O2 Del Method 98 F 60 18 142/60 H Room Air 12/09/23 11:17 12/09/23 11:17 12/09/23 11:17 12/09/23 11:17 12/09/23 11:17 Oxygen Delivery Method Room Air Weight: 210 lb Body Mass Index (BMI) 30.1 Physical Exam Const oriented x3 General Appearance: cooperative Exam Limitations: no limitations HEENT normocephalic Head and Scalp: normal to inspection Face and Sinus: normal facial exam Eyes PERRL Neck full ROM Resp normal respiratory effort Effort and Inspection: able to speak in complete sentences Auscultation: clear to auscultation bilaterally Cardio regular rate and regular rhythm Palpation: normal PMI Rate: regular rate Rhythm: regular rhythm Back/Spine Cervical Spine: cervical ROM normal Extremity normal to inspection Skin Wounds: wounds noted Wound Narrative: Open wound from surgery performed September 25 for necrotizing fasciitis from right scrotum to the right buttocks cheek Neuro oriented x3 Psych Appearance: grossly normal Speech: normal speech Thought Content: normal thought content Judgement: judgement good Debridement Note Debridement Note Wound debrided: Groin cluster Laterality: Right Type of Debridement: Excisional debridement Anesthesia Used: 5% Lidocaine Gel Depth: Down to and including healthy tissue and in the subcutaneous layer Percentage of wound debrided: 100 Instrument Used: 7mm curette Tissue Removed: Fibrin devitalized tissue Severity: Fat Layer Exposed Amount of bleeding with debridement: Mild Bleeding Controlled with: Compression and gauze Patient tolerated procedure: Patient tolerated procedure well Post-Debridement Measurements and Additional Note: Post-Debridement Measurements/Treatment - Nurse 1 - General Ulcer Assessment Start: 12/09/23 10:12 Freq: Status: Active Protocol: HARIS Activity Type Activity Date Activity User E-sign Co-sign Detail Recorded Client Recorded Date Recorded By Document 12/09/23 11:17 [place] [id number] 12/09/23 11:19 [place] 12/09/23 11:17 - Today's Visit Information Type of service Follow-up Visit (Physician/SHUTTLE THREADER ) Arrival Mode Ambulatory Accompanied by Patient Identification Verified (Name & Yes ) Safety Precautions Fall Prevention Height and Weight Body Mass Index (BMI) 30.1 BMI Classification Obese Vital Signs Temperature (97.8 F-99.1 F) 98 F Temperature Source Temporal Pulse Rate (60-100) 60 Pulse Location Monitor Respiratory Rate (12-18) 18 Respiratory rate source Observation Oxygen Delivery Method Room Air Blood Pressure (90/60-120/80) 142/60 H Blood Pressure Mean (mm Hg) 87 Source Monitor Position Sitting Blood Pressure Location Left Arm History Since Last Visit- (Skip if this is Patient's initial visit) Has dressing in place as prescribed Yes Has compression in place as prescribed N/A Has offloadiing in place as prescribed N/A Experienced any changes in pain level or No management Left Footwear Regular Shoe Right Footwear Regular Shoe Pain Scale: 0-10 Numeric Is Patient Pain Free? Yes [facility] Nurse 1 - General Ulcer Measurement Start: 12/09/23 10:12 Freq: Status: Active Protocol: Activity Type Activity Date Activity User E-sign Co-sign Detail Recorded Client Recorded Date Recorded By Document 12/09/23 11:17 WA [id number] 12/09/23 11:19 [place] 12/09/23 11:17 Wound Center Nurse 1 1. scrotum/ R buttocks -Current Size (cm) - Length 10.5 -Current Size (cm) - Width 2.0 -Current Size (cm) - Depth 0.1 -Total Square Cm 21.00 -Photo Taken No -Tunneling No -Undermining/Tunneling No -Circular Undermining No -Exudate Amt Medium -Exudate Type Serosanguineous -Wound Margin Flat & Intact -Granulation Amt Large (67-100%) -Granulation Quality Pale,Candelaria -Slough/Fibrin No -Necrosis Amt None Present (0 %) -Texture (Amelie-wound Skin Appearance) Assessed -Moisture (Amelie-wound Skin Appearance) Assessed -Color (Amelie-wound Skin Appearance) Assessed -Temperature (Amelie-wound Skin No Abnormality Appearance) (Pt Warm) -Tenderness on Palpation (Amelie-wound No Skin Appearance) -Ulcer Cleansing Soap and Water -Foul Odor after Cleansing No -Anesthetic Used 4% Lidocaine Solution Lower Limb Edema Present NA CHRIS - Nurse 2 - General Ulcer CM Notes Start: 12/09/23 10:12 Freq: Status: Active Protocol: Activity Type Activity Date Activity User E-sign Co-sign Detail Recorded Client Recorded Date Recorded By Document 12/09/23 10:12 [facility] [id number] 12/09/23 10:16 [facility] 12/09/23 10:12 Wound Center Nurse 2 1. scrotum/ R buttocks -Time 10:12 -Correct Patient Yes -Correct Side, Site, Position Yes -Correct Procedure Yes -Procedure Performed Yes -Type of Procedure Debridement -Clinical Debridement Subcutaneous -Tissue Removed Subcutaneous -Post Debridement (cm) - Length 13.5 -Post Debridement (cm) - Width 2.5 -Post Debridement (cm) - Depth 0.1 -Total Square (Post) (cm) 33.75 -Area of Debridement (cm) - Length 13.5 -Area of Debridement (cm) - Width 2.5 -Total Square (Area) (cm) 33.75 -Tunneling No -Undermining/Tunneling No -Circular Undermining No -Wound/Ulcer Outcome Not Healed -Ulcer Cleansing Rinsed/ Irrigated with Saline -Foul Odor after Cleansing No -Bioengineered Tissue No -Bleeding Controlled with Pressure -Treatment Response Procedure Tolerated Well -Debridement - Subq, 1st 20sq cm Yes -Debridement, SubQ, ea addt'l 20sq cm 1 or part thereof Pain Scale: 0-10 Numeric Is Patient Pain Free? Yes CHRIS - Nurse 3 - General Ulcer D/C NN Start: 12/09/23 10:12 Freq: Status: Active Protocol: Activity Type Activity Date Activity User E-sign Co-sign Detail Recorded Client Recorded Date Recorded By Document 12/09/23 10:17 [facility] [id number] 12/09/23 10:17 [facility] 12/09/23 10:17 Wound Care Center Nurse 3 1. scrotum/ R buttocks -Ulcer Cleansing Rinsed/ Irrigated with Saline -Foul Odor after Cleansing No -Primary Dressing Applied Fibracol Plus 4x4 -Other Dressing ABD -Primary Dressing Covered/Secured with Secured with Tape -Fibracol Plus 4x4 1 Treatment Response Procedure Tolerated Well Pain Scale: 0-10 Numeric Is Patient Pain Free? Yes WC - Visit Discharge Discharge Condition Stable Ambulatory Status Ambulatory Transportation Private Auto Accompanied by Assessment/Plan Assessment/Plan (1) Necrotizing fasciitis: CODE(S): M72.6 - Necrotizing fasciitis (2) Nonhealing surgical wound: CODE(S): T81.89XA - Other complications of procedures, not elsewhere classified, initial encounter QUALIFIERS: Encounter type: initial encounter Qualified Code(s): T81.89XA - Other complications of procedures, not elsewhere classified, initial encounter PLAN: Wash perineal area with antibacterial soap in the shower pat dry Apply Fibracol to wound area cover with gauze and ABDs Daily and follow-up in 1 week (3) Hyperglycemia due to type 2 diabetes mellitus: CODE(S): E11.65 - Type 2 diabetes mellitus with hyperglycemia QUALIFIERS: Diabetes mellitus exterminator helper insulin use: without fci use Qualified Code(s): E11.65 - Type 2 diabetes mellitus with hyperglycemia (4) Infected open wound: CODE(S): T14.8XXA - Other injury of unspecified body region, initial encounter; L08.9 - Local infection of the skin and subcutaneous tissue, unspecified PLAN: Will continue monitoring patient for any kind of infection
[2023-12-23 11:21] VITALS: BP 138/57; PULSE 59; RESP 18; TEMP 36.6; BMI 30.1
--- NOTE | 2023-12-23 11:52 | PN.PCM_ITS ---
History of Present Illness Date of Service: 12/23/23 Chief Complaint: Follow-up for surgical removal of necrotizing fasciitis of perianal and scrotal area. History of Wound: 68-year-old white male on September 22 had surgery at [facility] for necrotizing fasciitis of the perineum and scrotum. Patient states it started about 2 weeks prior that they thought he had a prostate infection and then it just turned started turning black. He has had about 3 surgeries for removal of the necrotic tissue. And at this time is using Vashi to wet-to-dry as treatment. Has been done with antibiotics since mid September according to records. We will reculture today. The area starts in the right scrotum and goes down into the right buttocks cheek near the rectum. We obtained wound cultures today Progress of Wound: The perineum and perirectal area are healing nicely he has some hypergranulation on the testicular area will hit that with some nitrous to stop the growth he can continue using the Fibracol and it at the measurements are much smaller. Subjective Subjective Patient is anxious to be done Objective Data Objective Data No sign of infection but he does have some hyper granulation on the anterior testicular area will using nitrous sticks to decrease the amount of skin being made. He can still go back and start using the Fibracol again for healing. Vital Signs: Vital Signs Temp Pulse Resp BP O2 Del Method 98 F 59 L 18 138/57 H Room Air 12/23/23 11:21 12/23/23 11:21 12/23/23 11:21 12/23/23 11:21 12/23/23 11:21 Oxygen Delivery Method Room Air Weight: 210 lb Body Mass Index (BMI) 30.1 Lab / Micro Data Attestation: I reviewed the patient's lab results. Physical Exam Const oriented x3 General Appearance: cooperative Exam Limitations: no limitations HEENT normocephalic Head and Scalp: normal to inspection Face and Sinus: normal facial exam Eyes PERRL Neck full ROM Resp normal respiratory effort Effort and Inspection: able to speak in complete sentences Auscultation: clear to auscultation bilaterally Cardio regular rate and regular rhythm Palpation: normal PMI Rate: regular rate Rhythm: regular rhythm Back/Spine Cervical Spine: cervical ROM normal Extremity normal to inspection Skin Wounds: wounds noted Wound Narrative: Open wound from surgery performed September 25 for necrotizing fasciitis from right scrotum to the right buttocks cheek Neuro oriented x3 Psych Appearance: grossly normal Speech: normal speech Thought Content: normal thought content Judgement: judgement good Debridement Note Debridement Note Wound debrided: Groin cluster Laterality: Right Type of Debridement: Excisional debridement Anesthesia Used: 5% Lidocaine Gel Depth: Down to and including healthy tissue and in the subcutaneous layer Percentage of wound debrided: 100 Instrument Used: 7mm curette Tissue Removed: Fibrin devitalized tissue Severity: Fat Layer Exposed Amount of bleeding with debridement: Mild Bleeding Controlled with: Compression and gauze Patient tolerated procedure: Patient tolerated procedure well Post-Debridement Measurements and Additional Note: Post-Debridement Measurements/Treatment - Nurse 1 - General Ulcer Assessment Start: 12/09/23 10:12 Freq: Status: Active Protocol: HARIS Activity Type Activity Date Activity User E-sign Co-sign Detail Recorded Client Recorded Date Recorded By Document 12/09/23 11:17 [place] [id number] 12/09/23 11:19 VT Document 12/23/23 11:21 VT [id number] 12/23/23 11:29 [place] 12/09/23 12/23/23 11:17 11:21 - Today's Visit Information Type of service Follow-up Visit Follow-up Visit (Physician/PARALEGAL LEGAL SECRETARY (Physician/PARALEGAL LEGAL SECRETARY ) ) Arrival Mode Ambulatory Ambulatory Accompanied by Patient Identification Verified (Name & Yes Yes ) Safety Precautions Fall Prevention Fall Prevention Height and Weight Body Mass Index (BMI) 30.1 30.1 BMI Classification Obese Obese Vital Signs Temperature (97.8 F-99.1 F) 98 F 98 F Temperature Source Temporal Temporal Pulse Rate (60-100) 60 59 L Pulse Location Monitor Monitor Respiratory Rate (12-18) 18 18 Respiratory rate source Observation Observation Oxygen Delivery Method Room Air Room Air Blood Pressure (90/60-120/80) 142/60 H 138/57 H Blood Pressure Mean (mm Hg) 87 84 Source Monitor Monitor Position Sitting Sitting Blood Pressure Location Left Arm Left Arm History Since Last Visit- (Skip if this is Patient's initial visit) Has dressing in place as prescribed Yes No Has compression in place as prescribed N/A N/A Has offloadiing in place as prescribed N/A N/A Experienced any changes in pain level or No No management Left Footwear Regular Shoe Regular Shoe Right Footwear Regular Shoe Regular Shoe Pain Scale: 0-10 Numeric Is Patient Pain Free? Yes Yes - Nurse 1 - General Ulcer Measurement Start: 12/09/23 10:12 Freq: Status: Active Protocol: Activity Type Activity Date Activity User E-sign Co-sign Detail Recorded Client Recorded Date Recorded By Document 12/09/23 11:17 VT [id number] 12/09/23 11:19 VT Document 12/23/23 11:21 VT [id number] 12/23/23 11:29 VT 12/09/23 12/23/23 11:17 11:21 Wound Center Nurse 1 1. scrotum/ R buttocks -Current Size (cm) - Length 10.5 10.5 -Current Size (cm) - Width 2.0 3.5 -Current Size (cm) - Depth 0.1 0.4 -Total Square Cm 21.00 36.75 -Photo Taken No No -Tunneling No No -Undermining/Tunneling No No -Circular Undermining No -Exudate Amt Medium Small -Exudate Type Serosanguineous Serosanguineous -Wound Margin Flat & Intact Flat & Intact -Granulation Amt Large (67-100%) Large (67-100%) -Granulation Quality Pale,Sula Pale,Sula -Slough/Fibrin No No -Necrosis Amt None Present (0 %) -Texture (Amelie-wound Skin Appearance) Assessed Assessed -Moisture (Amelie-wound Skin Appearance) Assessed Assessed, Maceration -Color (Amelie-wound Skin Appearance) Assessed Assessed -Temperature (Amelie-wound Skin No Abnormality No Abnormality Appearance) (Pt Warm) (Pt Warm) -Tenderness on Palpation (Amelie-wound No No Skin Appearance) -Ulcer Cleansing Soap and Water Not Cleansed -Foul Odor after Cleansing No No -Anesthetic Used 4% Lidocaine 5% Lidocaine Solution Gel Lower Limb Edema Present NA NA WC - Nurse 2 - General Ulcer CM Notes Start: 12/09/23 10:12 Freq: Status: Active Protocol: Activity Type Activity Date Activity User E-sign Co-sign Detail Recorded Client Recorded Date Recorded By Document 12/09/23 10:12 [facility] 1606-06-14 12/09/23 10:16 [facility] Document 12/23/23 11:32 [facility] 1606-06-14 12/23/23 11:37 [facility] 12/09/23 12/23/23 10:12 11:32 Wound Center Nurse 2 1. scrotum/ R buttocks -Time 10:12 11:32 -Correct Patient Yes -Correct Side, Site, Position Yes -Correct Procedure Yes -Procedure Performed Yes -Type of Procedure Debridement -Clinical Debridement Subcutaneous -Tissue Removed Subcutaneous -Post Debridement (cm) - Length 13.5 11.9 -Post Debridement (cm) - Width 2.5 1.5 -Post Debridement (cm) - Depth 0.1 0.1 -Total Square (Post) (cm) 33.75 17.85 -Area of Debridement (cm) - Length 13.5 11.9 -Area of Debridement (cm) - Width 2.5 1.5 -Total Square (Area) (cm) 33.75 17.85 -Tunneling No No -Undermining/Tunneling No No -Circular Undermining No No -Wound/Ulcer Outcome Not Healed Not Healed -Ulcer Cleansing Rinsed/ Rinsed/ Irrigated with Irrigated with Saline Saline -Foul Odor after Cleansing No No -Bioengineered Tissue No No -Bleeding Controlled with Pressure Silver Nitrate -Treatment Response Procedure Procedure Tolerated Well Tolerated Well -Debridement - Subq, 1st 20sq cm Yes -Debridement, SubQ, ea addt'l 20sq cm 1 or part thereof Pain Scale: 0-10 Numeric Is Patient Pain Free? Yes Yes WC - Nurse 3 - General Ulcer D/C NN Start: 12/09/23 10:12 Freq: Status: Active Protocol: Activity Type Activity Date Activity User E-sign Co-sign Detail Recorded Client Recorded Date Recorded By Document 12/09/23 10:17 [facility] 1606-06-14 12/09/23 10:17 [facility] Document 12/23/23 11:38 [facility] 1606-06-14 12/23/23 11:39 [facility] 12/09/23 12/23/23 10:17 11:38 Wound Care Center Nurse 3 1. scrotum/ R buttocks -Ulcer Cleansing Rinsed/ Rinsed/ Irrigated with Irrigated with Saline Saline -Foul Odor after Cleansing No No -Primary Dressing Applied Fibracol Plus Fibracol Plus 4x4 4x4 -Other Dressing ABD abd; drsg per mt rn -Primary Dressing Covered/Secured with Secured with Dry Gauze Tape -Fibracol Plus 4x4 1 1 Treatment Response Procedure Procedure Tolerated Well Tolerated Well Pain Scale: 0-10 Numeric Is Patient Pain Free? Yes Yes WC - Visit Discharge Discharge Condition Stable Stable Ambulatory Status Ambulatory Ambulatory Transportation Private Auto Private Auto Accompanied by Facility Type Home Health Assessment/Plan Assessment/Plan (1) Necrotizing fasciitis: CODE(S): M72.6 - Necrotizing fasciitis (2) Nonhealing surgical wound: CODE(S): T81.89XA - Other complications of procedures, not elsewhere classified, initial encounter QUALIFIERS: Encounter type: initial encounter Qualified Code(s): T81.89XA - Other complications of procedures, not elsewhere classified, initial encounter PLAN: Wash perineal area with antibacterial soap in the shower pat dry Apply Fibracol to wound area cover with gauze and ABDs Daily and follow-up in 1 week (3) Hyperglycemia due to type 2 diabetes mellitus: CODE(S): E11.65 - Type 2 diabetes mellitus with hyperglycemia QUALIFIERS: Diabetes mellitus remote computer terminal operator insulin use: without remote computer terminal operator use Qualified Code(s): E11.65 - Type 2 diabetes mellitus with hyperglycemia (4) Infected open wound: CODE(S): T14.8XXA - Other injury of unspecified body region, initial encounter; L08.9 - Local infection of the skin and subcutaneous tissue, unspecified PLAN: Will continue monitoring patient for any kind of infection
[2023-12-30 10:58] VITALS: BP 129/64; PULSE 62; RESP 20; TEMP 36.4; BMI 30.1
--- NOTE | 2023-12-30 12:53 | PN.PCM_ITS ---
History of Present Illness Date of Service: 12/30/23 Chief Complaint: Follow-up for surgical removal of necrotizing fasciitis of perianal and scrotal area. History of Wound: 68-year-old white male on September 22 had surgery at [facility] for necrotizing fasciitis of the perineum and scrotum. Patient states it started about 2 weeks prior that they thought he had a prostate infection and then it just turned started turning black. He has had about 3 surgeries for removal of the necrotic tissue. And at this time is using Vashi to wet-to-dry as treatment. Has been done with antibiotics since mid September according to records. We will reculture today. The area starts in the right scrotum and goes down into the right buttocks cheek near the rectum. We obtained wound cultures today Progress of Wound: Wound is healing nicely in the perineum area measurements are smaller patient is anxious to be discharged Subjective Subjective Patient is anxious to be discharged wonders how much longer. Objective Data Objective Data No sign of infection doing very well healing good last week he had hypergranulation but not this week. Skin is not hyper granulated this week and healing well Vital Signs: Vital Signs Temp Pulse Resp BP O2 Del Method 97.5 F L 62 20 H 129/64 H Room Air 12/30/23 10:58 12/30/23 10:58 12/30/23 10:58 12/30/23 10:58 12/23/23 11:21 Oxygen Delivery Method Room Air Weight: 210 lb Body Mass Index (BMI) 30.1 Physical Exam Const oriented x3 General Appearance: cooperative Exam Limitations: no limitations HEENT normocephalic Head and Scalp: normal to inspection Face and Sinus: normal facial exam Eyes PERRL Neck full ROM Resp normal respiratory effort Effort and Inspection: able to speak in complete sentences Auscultation: clear to auscultation bilaterally Cardio regular rate and regular rhythm Palpation: normal PMI Rate: regular rate Rhythm: regular rhythm Back/Spine Cervical Spine: cervical ROM normal Extremity normal to inspection Skin Wounds: wounds noted Wound Narrative: Open wound from surgery performed September 25 for necrotizing fasciitis from right scrotum to the right buttocks cheek Neuro oriented x3 Psych Appearance: grossly normal Speech: normal speech Thought Content: normal thought content Judgement: judgement good Debridement Note Debridement Note Wound debrided: Groin cluster Laterality: Right Type of Debridement: Excisional debridement Anesthesia Used: 5% Lidocaine Gel Depth: Down to and including healthy tissue and in the subcutaneous layer Percentage of wound debrided: 100 Instrument Used: 7mm curette Tissue Removed: Fibrin devitalized tissue Severity: Fat Layer Exposed Amount of bleeding with debridement: Mild Bleeding Controlled with: Compression and gauze Patient tolerated procedure: Patient tolerated procedure well Post-Debridement Measurements and Additional Note: Post-Debridement Measurements/Treatment - Nurse 1 - General Ulcer Assessment Start: 12/09/23 10:12 Freq: Status: Active Protocol: HARIS Activity Type Activity Date Activity User E-sign Co-sign Detail Recorded Client Recorded Date Recorded By Document 12/09/23 11:17 MT [id number] 12/09/23 11:19 MT Document 12/23/23 11:21 MI [id number] 12/23/23 11:29 MT Document 12/30/23 10:58 DL [email or web address] 12/30/23 11:06 DL 12/09/23 12/23/23 12/30/23 11:17 11:21 10:58 - Today's Visit Information Type of service Follow-up Visit Follow-up Visit 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 (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 ) ) ) Arrival Mode Ambulatory Ambulatory Ambulatory Transfer Assistance None Accompanied by Patient Identification Verified (Name & Yes Yes Yes ) Patient Requires Transmission-Based No Precautions Safety Precautions Fall Prevention Fall Prevention Height and Weight Body Mass Index (BMI) 30.1 30.1 30.1 BMI Classification Obese Obese Obese Vital Signs Temperature (97.8 F-99.1 F) 98 F 98 F 97.5 F L Temperature Source Temporal Temporal Temporal Pulse Rate (60-100) 60 59 L 62 Pulse Location Monitor Monitor Monitor Respiratory Rate (12-18) 18 18 20 H Respiratory rate source Observation Observation Observation Oxygen Delivery Method Room Air Room Air Blood Pressure (90/60-120/80) 142/60 H 138/57 H 129/64 H Blood Pressure Mean (mm Hg) 87 84 85 Source Monitor Monitor Monitor Position Sitting Sitting Blood Pressure Location Left Arm Left Arm History Since Last Visit- (Skip if this is Patient's initial visit) Have you changed medications since your No last visit? Any new allergies or adverse reactions No Had a fall/change in ADL's that may No increase risk of falls Signs or symptoms of abuse and/or No neglect since last visit Have you been in the hospital since your No last visit? Has dressing in place as prescribed Yes No Yes Has compression in place as prescribed N/A N/A Yes Has offloadiing in place as prescribed N/A N/A N/A Experienced any changes in pain level or No No No management Left Footwear Regular Shoe Regular Shoe Right Footwear Regular Shoe Regular Shoe Pain Scale: 0-10 Numeric Is Patient Pain Free? Yes Yes Yes WC - Nurse 1 - General Ulcer Measurement Start: 12/09/23 10:12 Freq: Status: Active Protocol: Activity Type Activity Date Activity User E-sign Co-sign Detail Recorded Client Recorded Date Recorded By Document 12/09/23 11:17 MT [id number] 12/09/23 11:19 MT Document 12/23/23 11:21 MI [id number] 12/23/23 11:29 MT Document 12/30/23 10:58 DL [email or web address] 12/30/23 11:06 DL 12/09/23 12/23/23 12/30/23 11:17 11:21 10:58 Wound Center Nurse 1 1. scrotum/ R buttocks -Current Size (cm) - Length 10.5 10.5 9 -Current Size (cm) - Width 2.0 3.5 2 -Current Size (cm) - Depth 0.1 0.4 0.1 -Total Square Cm 21.00 36.75 18 -Photo Taken No No -Tunneling No No -Undermining/Tunneling No No -Circular Undermining No -Exudate Amt Medium Small Medium -Exudate Type Serosanguineous Serosanguineous Serosanguineous -Wound Margin Flat & Intact Flat & Intact Distinct, Outline Attached -Granulation Amt Large (67-100%) Large (67-100%) Large (67-100%) -Granulation Quality Pale,Lostant Pale,Lostant Lostant,Red -Slough/Fibrin No No -Necrosis Amt None Present (0 Small (1-33%) %) -Necrotic Tissue Type Adherent Slough -Structure Exposed N/A -Texture (Amelie-wound Skin Appearance) Assessed Assessed Scarring -Moisture (Amelie-wound Skin Appearance) Assessed Assessed, No Abnormality Maceration -Color (Amelie-wound Skin Appearance) Assessed Assessed No Abnormality -Temperature (Amelie-wound Skin No Abnormality No Abnormality No Abnormality Appearance) (Pt Warm) (Pt Warm) (Pt Warm) -Tenderness on Palpation (Amelie-wound No No Skin Appearance) -Ulcer Cleansing Soap and Water Not Cleansed Soap and Water -Foul Odor after Cleansing No No No -Anesthetic Used 4% Lidocaine 5% Lidocaine 5% Lidocaine Solution Gel Gel Lower Limb Edema Present NA NA WC - Nurse 2 - General Ulcer CM Notes Start: 12/09/23 10:12 Freq: Status: Active Protocol: Activity Type Activity Date Activity User E-sign Co-sign Detail Recorded Client Recorded Date Recorded By Document 12/09/23 10:[address] [facility] 1606-06-14 12/09/23 10:16 BMF Document 12/23/23 11:[address] [facility] 1606-06-14 12/23/23 11:37 BMF Document 12/30/23 11:27 BMF [email or web address] 12/30/23 11:29 BMF Edit Result 12/30/23 11:27 BMF (1) [id number] 12/30/23 12:24 BMF (1) 1. scrotum/ R buttocks - Debridement, SubQ, ea addt'l 20sq cm => 1 or part thereof 12/09/23 12/23/23 12/30/23 10:12 11:32 11:27 Wound Center Nurse 2 1. scrotum/ R buttocks -Time 10:12 11:32 11:27 -Correct Patient Yes Yes -Correct Side, Site, Position Yes Yes -Correct Procedure Yes Yes -Procedure Performed Yes Yes -Type of Procedure Debridement Debridement -Clinical Debridement Subcutaneous Subcutaneous -Tissue Removed Subcutaneous Subcutaneous -Post Debridement (cm) - Length 13.5 11.9 11.5 -Post Debridement (cm) - Width 2.5 1.5 2 -Post Debridement (cm) - Depth 0.1 0.1 0.1 -Total Square (Post) (cm) 33.75 17.85 23.0 -Area of Debridement (cm) - Length 13.5 11.9 11.5 -Area of Debridement (cm) - Width 2.5 1.5 2 -Total Square (Area) (cm) 33.75 17.85 23.0 -Tunneling No No No -Undermining/Tunneling No No No -Circular Undermining No No No -Wound/Ulcer Outcome Not Healed Not Healed Not Healed -Ulcer Cleansing Rinsed/ Rinsed/ Rinsed/ Irrigated with Irrigated with Irrigated with Saline Saline Saline -Foul Odor after Cleansing No No No -Bioengineered Tissue No No No -Bleeding Controlled with Pressure Silver Nitrate Pressure -Treatment Response Procedure Procedure Procedure Tolerated Well Tolerated Well Tolerated Well -Debridement - Subq, 1st 20sq cm Yes Yes -Debridement, SubQ, ea addt'l 20sq cm 1 1 or part thereof Pain Scale: 0-10 Numeric Is Patient Pain Free? Yes Yes Yes - Nurse 3 - General Ulcer D/C NN Start: 12/09/23 10:12 Freq: Status: Active Protocol: Activity Type Activity Date Activity User E-sign Co-sign Detail Recorded Client Recorded Date Recorded By Document 12/09/23 10:17 [employer] 1606-06-14 12/09/23 10:17 [employer] Document 12/23/23 11:38 [employer] 1606-06-14 12/23/23 11:39 [employer] Document 12/30/23 11:44 KW ; 12/30/23 11:45 KW 12/09/23 12/23/23 12/30/23 10:17 11:38 11:44 Wound Care Center Nurse 3 1. scrotum/ R buttocks -Ulcer Cleansing Rinsed/ Rinsed/ Irrigated with Irrigated with Saline Saline -Foul Odor after Cleansing No No -Primary Dressing Applied Fibracol Plus Fibracol Plus Fibracol Plus 4x4 4x4 4x4 -Other Dressing ABD abd; drsg per mt rn -Primary Dressing Covered/Secured with Secured with Dry Gauze Dry Gauze, Tape Secured with Tape -Fibracol Plus 4x4 1 1 1 Treatment Response Procedure Procedure Tolerated Well Tolerated Well Pain Scale: 0-10 Numeric Is Patient Pain Free? Yes Yes Yes WC - Visit Discharge Discharge Condition Stable Stable Ambulatory Status Ambulatory Ambulatory Transportation Private Auto Private Auto Accompanied by Facility Type Home Health Assessment/Plan Assessment/Plan (1) Necrotizing fasciitis: CODE(S): M72.6 - Necrotizing fasciitis (2) Nonhealing surgical wound: CODE(S): T81.89XA - Other complications of procedures, not elsewhere classified, initial encounter QUALIFIERS: Encounter type: initial encounter Qualified Code(s): T81.89XA - Other complications of procedures, not elsewhere classified, initial encounter PLAN: Wash perineal area with antibacterial soap in the shower pat dry Apply Fibracol to wound area cover with gauze and ABDs Daily and follow-up in 1 week (3) Hyperglycemia due to type 2 diabetes mellitus: CODE(S): E11.65 - Type 2 diabetes mellitus with hyperglycemia QUALIFIERS: Diabetes mellitus fci insulin use: without 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
== END 2024-01-03 23:59 | disposition home or self-care (01) ==
LOC: WC 10:30
PROVIDERS: PCP Family Medicine; Referring Provider Family Medicine; Visit Provider Nurse Practitioner
DX: M72.6 Necrotizing fasciitis (principal); E11.65 Type 2 diabetes mellitus with hyperglycemia; T81.89XA Other complications of procedures, not elsewhere classified, initial encounter; Y84.9 Medical procedure, unspecified as the cause of abnormal reaction of the patient, or of later complication, without mention of misadventure at the time of the procedure
CPT/HCPCS: 11042; 11045; 17250; 99213; G0463

== ENCOUNTER 2024-02-03 10:30 | Outpatient (RCR) | payer MEDICARE, SELFPAY ==
[2024-01-04 00:38] VITALS: BP 150/60; PULSE 56; RESP 18; TEMP 35.9; BMI 30.1
[2024-01-06 10:47] VITALS: BP 137/51; PULSE 54; RESP 14; TEMP 36.8; BMI 30.1
--- NOTE | 2024-01-06 11:05 | PCM.WC.PN ---
History of Present Illness Date of Service: 01/06/24 Chief Complaint: Follow-up for surgical removal of necrotizing fasciitis of perianal and scrotal area. History of Wound: 68-year-old white male on September 22 had surgery at [facility] for necrotizing fasciitis of the perineum and scrotum. Patient states it started about 2 weeks prior that they thought he had a prostate infection and then it just turned started turning black. He has had about 3 surgeries for removal of the necrotic tissue. And at this time is using Vashi to wet-to-dry as treatment. Has been done with antibiotics since mid September according to records. We will reculture today. The area starts in the right scrotum and goes down into the right buttocks cheek near the rectum. We obtained wound cultures today Progress of Wound: Wound continues to heal it is now his scrotum is completely healed it is under his scrotum into the head right groin area. Top layer skin just needs to be put on there is no depth. No sign of infection patient is doing well Subjective Subjective Patient is is anxious to have everything done he is happy that it is getting smaller Objective Data Objective Data Continues to shrink we will let him go 2 weeks this time on his visits he still to use the Fibracol which is doing well with him. Vital Signs: Vital Signs Temp Pulse Resp BP 98.2 F 54 L 14 137/51 H 01/06/24 10:47 01/06/24 10:47 01/06/24 10:47 01/06/24 10:47 Weight: 210 lb Body Mass Index (BMI) 30.1 Physical Exam Const oriented x3 General Appearance: cooperative Exam Limitations: no limitations HEENT normocephalic Head and Scalp: normal to inspection Face and Sinus: normal facial exam Eyes PERRL Neck full ROM Resp normal respiratory effort Effort and Inspection: able to speak in complete sentences Auscultation: clear to auscultation bilaterally Cardio regular rate and regular rhythm Palpation: normal PMI Rate: regular rate Rhythm: regular rhythm Back/Spine Cervical Spine: cervical ROM normal Extremity normal to inspection Skin Wounds: wounds noted Wound Narrative: Open wound from surgery performed September 25 for necrotizing fasciitis from right scrotum to the right buttocks cheek Neuro oriented x3 Psych Appearance: grossly normal Speech: normal speech Thought Content: normal thought content Judgement: judgement good Debridement Note Debridement Note Wound debrided: Groin cluster Laterality: Right Type of Debridement: Excisional debridement Anesthesia Used: 5% Lidocaine Gel Depth: Down to and including healthy tissue and in the subcutaneous layer Percentage of wound debrided: 100 Instrument Used: 7mm curette Tissue Removed: Fibrin devitalized tissue Severity: Fat Layer Exposed Amount of bleeding with debridement: Mild Bleeding Controlled with: Compression and gauze Patient tolerated procedure: Patient tolerated procedure well Post-Debridement Measurements and Additional Note: Post-Debridement Measurements/Treatment WC - Nurse 1 - General Ulcer Assessment Start: 01/06/24 10:46 Freq: Status: Active Protocol: HARIS Activity Type Activity Date Activity User E-sign Co-sign Detail Recorded Client Recorded Date Recorded By Document 01/06/24 10:47 ML 04.14.25.7 01/06/24 10:56 ML 01/06/24 10:47 WC - Today's Visit Information Type of service 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 ) Arrival Mode Ambulatory Transfer Assistance None Patient Identification Verified (Name & Yes ) Patient Requires Transmission-Based No Precautions Height and Weight Body Mass Index (BMI) 30.1 BMI Classification Obese Vital Signs Temperature (97.8 F-99.1 F) 98.2 F Temperature Source Temporal Pulse Rate (60-100) 54 L Pulse Location Monitor Respiratory Rate (12-18) 14 Respiratory rate source Observation Blood Pressure (90/60-120/80) 137/51 H Blood Pressure Mean (mm Hg) 79 Source Monitor Position Sitting Blood Pressure Location Left Arm History Since Last Visit- (Skip if this is Patient's initial visit) Have you changed medications since your No last visit? Any new allergies or adverse reactions No Had a fall/change in ADL's that may No increase risk of falls Signs or symptoms of abuse and/or No neglect since last visit Have you been in the hospital since your No last visit? Has dressing in place as prescribed Yes Has compression in place as prescribed N/A Has offloadiing in place as prescribed N/A Experienced any changes in pain level or No management Pain Scale: 0-10 Numeric Is Patient Pain Free? Yes CHRIS Massey Nurse 1 - General Ulcer Measurement Start: 01/06/24 10:46 Freq: Status: Active Protocol: Activity Type Activity Date Activity User E-sign Co-sign Detail Recorded Client Recorded Date Recorded By Document 01/06/24 10:47 ML 04.14.25.7 01/06/24 10:56 ML 01/06/24 10:47 Wound Center Nurse 1 1. scrotum/ R buttocks -Current Size (cm) - Length 13.5 -Current Size (cm) - Width 0.3 -Current Size (cm) - Depth 0.5 -Total Square Cm 4.05 -Exudate Amt Medium -Exudate Type Serosanguineous -Granulation Amt Medium (34-66%) -Slough/Fibrin Yes -Necrosis Amt Medium (34-66%) -Necrotic Tissue Type Adherent Slough -Texture (Amelie-wound Skin Appearance) No Abnormality -Moisture (Amelie-wound Skin Appearance) No Abnormality -Color (Amelie-wound Skin Appearance) No Abnormality -Temperature (Amelie-wound Skin No Abnormality Appearance) (Pt Warm) -Ulcer Cleansing Soap and Water -Foul Odor after Cleansing No -Anesthetic Used 4% Lidocaine Solution WC - Nurse 2 - General Ulcer CM Notes Start: 01/06/24 10:46 Freq: Status: Active Protocol: Activity Type Activity Date Activity User E-sign Co-sign Detail Recorded Client Recorded Date Recorded By Document 01/06/24 11:00 [facility] 10.10.25.7 01/06/24 11:03 [facility] 01/06/24 11:00 Wound Center Nurse 2 -Time 11:01 -Correct Patient Yes -Correct Side, Site, Position Yes -Correct Procedure Yes -Procedure Performed Yes -Type of Procedure Debridement -Clinical Debridement Subcutaneous -Tissue Removed Subcutaneous -Post Debridement (cm) - Length 10 -Post Debridement (cm) - Width 3 -Post Debridement (cm) - Depth 0.1 -Total Square (Post) (cm) 30 -Area of Debridement (cm) - Length 10 -Area of Debridement (cm) - Width 3 -Total Square (Area) (cm) 30 -Tunneling No -Undermining/Tunneling No -Circular Undermining No -Wound/Ulcer Outcome Not Healed -Ulcer Cleansing Rinsed/ Irrigated with Saline -Foul Odor after Cleansing No -Bioengineered Tissue No -Bleeding Controlled with Pressure -Treatment Response Procedure Tolerated Well -Debridement - Subq, 1st 20sq cm Yes -Debridement, SubQ, ea addt'l 20sq cm 1 or part thereof Pain Scale: 0-10 Numeric Is Patient Pain Free? Yes Assessment/Plan Assessment/Plan (1) Necrotizing fasciitis: CODE(S): M72.6 - Necrotizing fasciitis (2) Nonhealing surgical wound: CODE(S): T81.89XA - Other complications of procedures, not elsewhere classified, initial encounter QUALIFIERS: Encounter type: initial encounter Qualified Code(s): T81.89XA - Other complications of procedures, not elsewhere classified, initial encounter PLAN: Wash perineal area with antibacterial soap in the shower pat dry Apply Fibracol to wound area cover with gauze and ABDs Daily and follow-up in 2 weeks (3) Hyperglycemia due to type 2 diabetes mellitus: CODE(S): E11.65 - Type 2 diabetes mellitus with hyperglycemia QUALIFIERS: Diabetes mellitus residential insulin use: without residential use Qualified Code(s): E11.65 - Type 2 diabetes mellitus with hyperglycemia (4) Infected open wound: CODE(S): T14.8XXA - Other injury of unspecified body region, initial encounter; L08.9 - Local infection of the skin and subcutaneous tissue, unspecified PLAN: Will continue monitoring patient for any kind of infection
--- NOTE | 2024-01-14 08:40 | WC ---
PHOTO 01/06/2024 RIGHT GROIN/SCROTUM
[2024-01-20 11:11] VITALS: BP 141/59; PULSE 55; RESP 18; TEMP 36.6; BMI 30.1
--- NOTE | 2024-01-20 12:58 | PCM.WC.PN ---
History of Present Illness Date of Service: 01/20/24 Chief Complaint: Follow-up for surgical removal of necrotizing fasciitis of perianal and scrotal area. History of Wound: 68-year-old white male on September 22 had surgery at [facility] for necrotizing fasciitis of the perineum and scrotum. Patient states it started about 2 weeks prior that they thought he had a prostate infection and then it just turned started turning black. He has had about 3 surgeries for removal of the necrotic tissue. And at this time is using Vashi to wet-to-dry as treatment. Has been done with antibiotics since mid September according to records. We will reculture today. The area starts in the right scrotum and goes down into the right buttocks cheek near the rectum. We obtained wound cultures today Progress of Wound: Wound continues to heal it is now his scrotum is completely healed it is under his scrotum into the head right groin area. Top layer skin just needs to be put on there is no depth. No sign of infection patient is doing well This week he is actually healed in the center so he has to like to islands of open areas anterior and posterior in the scrotum. Subjective Subjective Patient is anxious to be done Objective Data Objective Data Will continue the same treatment with the Fibracol doing well were seeing him every 2 weeks which is fine no sign of infection seems to be healing okay. Vital Signs: Vital Signs Temp Pulse Resp BP 97.9 F 55 L 18 141/59 H 01/20/24 11:11 01/20/24 11:11 01/20/24 11:11 01/20/24 11:11 Weight: 210 lb Body Mass Index (BMI) 30.1 Lab / Micro Data Attestation: I reviewed the patient's lab results. Physical Exam Const oriented x3 General Appearance: cooperative Exam Limitations: no limitations HEENT normocephalic Head and Scalp: normal to inspection Face and Sinus: normal facial exam Eyes PERRL Neck full ROM Resp normal respiratory effort Effort and Inspection: able to speak in complete sentences Auscultation: clear to auscultation bilaterally Cardio regular rate and regular rhythm Palpation: normal PMI Rate: regular rate Rhythm: regular rhythm Back/Spine Cervical Spine: cervical ROM normal Extremity normal to inspection Skin Wounds: wounds noted Wound Narrative: Open wound from surgery performed September 25 for necrotizing fasciitis from right scrotum to the right buttocks cheek Neuro oriented x3 Psych Appearance: grossly normal Speech: normal speech Thought Content: normal thought content Judgement: judgement good Debridement Note Debridement Note Wound debrided: Groin cluster Laterality: Right Type of Debridement: Excisional debridement Anesthesia Used: 5% Lidocaine Gel Depth: Down to and including healthy tissue and in the subcutaneous layer Percentage of wound debrided: 100 Instrument Used: 7mm curette Tissue Removed: Fibrin devitalized tissue Severity: Fat Layer Exposed Amount of bleeding with debridement: Mild Bleeding Controlled with: Compression and gauze Patient tolerated procedure: Patient tolerated procedure well Post-Debridement Measurements and Additional Note: Post-Debridement Measurements/Treatment - Nurse 1 - General Ulcer Assessment Start: 01/06/24 10:46 Freq: Status: Active Protocol: HARIS Activity Type Activity Date Activity User E-sign Co-sign Detail Recorded Client Recorded Date Recorded By Document 01/06/24 10:47 ML [email or web address] 01/06/24 10:56 ML Document 01/20/24 11:11 RB WOUND 01/20/24 11:17 RB 01/06/24 01/20/24 10:47 11:11 - Today's Visit Information Type of service Follow-up Visit Follow-up Visit (Physician/PLATE GLASS INSTALLER HELPER (Physician/PLATE GLASS INSTALLER HELPER ) ) Arrival Mode Ambulatory Ambulatory Transfer Assistance None None Patient Identification Verified (Name & Yes Yes ) Patient Requires Transmission-Based No No Precautions Height and Weight Body Mass Index (BMI) 30.1 30.1 BMI Classification Obese Obese Vital Signs Temperature (97.8 F-99.1 F) 98.2 F 97.9 F Temperature Source Temporal Temporal Pulse Rate (60-100) 54 L 55 L Pulse Location Monitor Monitor Respiratory Rate (12-18) 14 18 Respiratory rate source Observation Observation Blood Pressure (90/60-120/80) 137/51 H 141/59 H Blood Pressure Mean (mm Hg) 79 86 Source Monitor Monitor Position Sitting Semi-Fowlers Blood Pressure Location Left Arm Left Arm History Since Last Visit- (Skip if this is Patient's initial visit) Have you changed medications since your No No last visit? Any new allergies or adverse reactions No No Had a fall/change in ADL's that may No No increase risk of falls Signs or symptoms of abuse and/or No No neglect since last visit Have you been in the hospital since your No No last visit? Has dressing in place as prescribed Yes Yes Has compression in place as prescribed N/A No Has offloadiing in place as prescribed N/A No Experienced any changes in pain level or No No management Pain Scale: 0-10 Numeric Is Patient Pain Free? Yes Yes CHRIS - Nurse 1 - General Ulcer Measurement Start: 01/06/24 10:46 Freq: Status: Active Protocol: Activity Type Activity Date Activity User E-sign Co-sign Detail Recorded Client Recorded Date Recorded By Document 01/06/24 10:47 ML [email or web address] 01/06/24 10:56 ML Document 01/20/24 11:11 RB WOUND 01/20/24 11:17 RB 01/06/24 01/20/24 10:47 11:11 Wound Center Nurse 1 1. scrotum/ R buttocks/r groin -Combined with other wound No -Current Size (cm) - Length 13.5 7 -Current Size (cm) - Width 0.3 1.5 -Current Size (cm) - Depth 0.5 0.1 -Total Square Cm 4.05 10.5 -Tunneling No -Undermining/Tunneling No -Circular Undermining No -Exudate Amt Medium Large -Exudate Type Serosanguineous Serosanguineous -Wound Margin Distinct, Outline Attached -Granulation Amt Medium (34-66%) Large (67-100%) -Granulation Quality [place],Red -Slough/Fibrin Yes Yes -Necrosis Amt Medium (34-66%) Small (1-33%) -Necrotic Tissue Type Adherent Slough Adherent Slough -Structure Exposed N/A -Texture (Amelie-wound Skin Appearance) No Abnormality Scarring -Moisture (Amelie-wound Skin Appearance) No Abnormality Assessed -Color (Amelie-wound Skin Appearance) No Abnormality Assessed -Temperature (Amelie-wound Skin No Abnormality No Abnormality Appearance) (Pt Warm) (Pt Warm) -Tenderness on Palpation (Amelie-wound No Skin Appearance) -Ulcer Cleansing Soap and Water Wound Cleanser -Foul Odor after Cleansing No No -Anesthetic Used 4% Lidocaine 4% Lidocaine Solution Solution WC - Nurse 2 - General Ulcer CM Notes Start: 01/06/24 10:46 Freq: Status: Active Protocol: Activity Type Activity Date Activity User E-sign Co-sign Detail Recorded Client Recorded Date Recorded By Document 01/06/24 11:00 BMF [email or web address] 01/06/24 11:03 [facility] Document 01/20/24 11:24 [facility] [email or web address] 01/20/24 11:28 [facility] 01/06/24 01/20/24 11:00 11:24 Wound Center Nurse 2 1. scrotum/ R buttocks/r groin -Time 11:01 11:24 -Correct Patient Yes Yes -Correct Side, Site, Position Yes Yes -Correct Procedure Yes Yes -Procedure Performed Yes Yes -Type of Procedure Debridement Debridement -Clinical Debridement Subcutaneous Subcutaneous -Tissue Removed Subcutaneous Subcutaneous -Post Debridement (cm) - Length 10 7.8 -Post Debridement (cm) - Width 3 2.2 -Post Debridement (cm) - Depth 0.1 0.1 -Total Square (Post) (cm) 30 17.16 -Area of Debridement (cm) - Length 10 7.8 -Area of Debridement (cm) - Width 3 2.2 -Total Square (Area) (cm) 30 17.16 -Tunneling No No -Undermining/Tunneling No No -Circular Undermining No No -Wound/Ulcer Outcome Not Healed Not Healed -Ulcer Cleansing Rinsed/ Rinsed/ Irrigated with Irrigated with Saline Saline -Foul Odor after Cleansing No No -Bioengineered Tissue No No -Bleeding Controlled with Pressure Pressure -Treatment Response Procedure Procedure Tolerated Well Tolerated Well -Debridement - Subq, 1st 20sq cm Yes Yes -Debridement, SubQ, ea addt'l 20sq cm 1 or part thereof Pain Scale: 0-10 Numeric Is Patient Pain Free? Yes Yes - Nurse 3 - General Ulcer D/C NN Start: 01/06/24 10:46 Freq: Status: Active Protocol: Activity Type Activity Date Activity User E-sign Co-sign Detail Recorded Client Recorded Date Recorded By Document 01/06/24 11:11 [facility] [email or web address] 01/06/24 11:11 [facility] Document 01/20/24 11:31 RB WOUND 01/20/24 11:32 RB 01/06/24 01/20/24 11:11 11:31 Wound Care Center Nurse 3 1. scrotum/ R buttocks/r groin -Ulcer Cleansing Rinsed/ Rinsed/ Irrigated with Irrigated with Saline Saline -Foul Odor after Cleansing No -Primary Dressing Applied Fibracol Plus Fibracol Plus 4x4 4x4 -Other Dressing abd ABD pad -Primary Dressing Covered/Secured with Secured with Tape -Fibracol Plus 4x4 1 1 Treatment Response Procedure Procedure Tolerated Well Tolerated Well Pain Scale: 0-10 Numeric Is Patient Pain Free? Yes Yes WC - Visit Discharge Discharge Condition Stable Stable Ambulatory Status Ambulatory Ambulatory Transportation Private Auto Private Auto Accompanied by Medication Reconcilliation completed & No provided to patient/care provider Clinical Summary of Care Provided Yes Facility Type Home Health Assessment/Plan Assessment/Plan (1) Necrotizing fasciitis: CODE(S): M72.6 - Necrotizing fasciitis (2) Nonhealing surgical wound: CODE(S): T81.89XA - Other complications of procedures, not elsewhere classified, initial encounter QUALIFIERS: Encounter type: initial encounter Qualified Code(s): T81.89XA - Other complications of procedures, not elsewhere classified, initial encounter PLAN: Wash perineal area with antibacterial soap in the shower pat dry Apply Fibracol to wound area cover with gauze and ABDs Daily and follow-up in 2 weeks (3) Hyperglycemia due to type 2 diabetes mellitus: CODE(S): E11.65 - Type 2 diabetes mellitus with hyperglycemia QUALIFIERS: Diabetes mellitus jail insulin use: without terminal gauger use Qualified Code(s): E11.65 - Type 2 diabetes mellitus with hyperglycemia (4) Infected open wound: CODE(S): T14.8XXA - Other injury of unspecified body region, initial encounter; L08.9 - Local infection of the skin and subcutaneous tissue, unspecified PLAN: Will continue monitoring patient for any kind of infection
[2024-02-03 10:51] VITALS: BP 137/60; PULSE 62; RESP 18; TEMP 36.5; BMI 30.1
--- NOTE | 2024-02-03 12:05 | WC ---
PHOTO 02/03/24 JUS
--- NOTE | 2024-02-03 12:23 | PCM.WC.PN ---
History of Present Illness Date of Service: 02/03/24 Chief Complaint: Follow-up for surgical removal of necrotizing fasciitis of perianal and scrotal area. History of Wound: 68-year-old white male on September 22 had surgery at [facility] for necrotizing fasciitis of the perineum and scrotum. Patient states it started about 2 weeks prior that they thought he had a prostate infection and then it just turned started turning black. He has had about 3 surgeries for removal of the necrotic tissue. And at this time is using Vashi to wet-to-dry as treatment. Has been done with antibiotics since mid September according to records. We will reculture today. The area starts in the right scrotum and goes down into the right buttocks cheek near the rectum. We obtained wound cultures today Progress of Wound: Wound continues to heal it is now his scrotum is completely healed it is under his scrotum into the head right groin area. Top layer skin just needs to be put on there is no depth. No sign of infection patient is doing well This week he is actually healed in the center so he has to like to islands of open areas anterior and posterior in the scrotum. Subjective Subjective Patient is anxious to get this over and he will Objective Data Objective Data He has 2 separate areas now with island in between of heel tissue the top part and the posterior more into the right groin area. No sign of infection no odor healing well with the Fibracol patient is continue eating right and continue for recall changes. Vital Signs: Vital Signs Temp Pulse Resp BP 97.7 F L 62 18 137/60 H 02/03/24 10:51 02/03/24 10:51 02/03/24 10:51 02/03/24 10:51 Weight: 210 lb Body Mass Index (BMI) 30.1 Lab / Micro Data Attestation: I reviewed the patient's lab results. Physical Exam Const oriented x3 General Appearance: cooperative Exam Limitations: no limitations HEENT normocephalic Head and Scalp: normal to inspection Face and Sinus: normal facial exam Eyes PERRL Neck full ROM Resp normal respiratory effort Effort and Inspection: able to speak in complete sentences Auscultation: clear to auscultation bilaterally Cardio regular rate and regular rhythm Palpation: normal PMI Rate: regular rate Rhythm: regular rhythm Back/Spine Cervical Spine: cervical ROM normal Extremity normal to inspection Skin Wounds: wounds noted Wound Narrative: Open wound from surgery performed September 25 for necrotizing fasciitis from right scrotum to the right buttocks cheek Neuro oriented x3 Psych Appearance: grossly normal Speech: normal speech Thought Content: normal thought content Judgement: judgement good Debridement Note Debridement Note Wound debrided: Groin cluster Laterality: Right Type of Debridement: Excisional debridement Anesthesia Used: 5% Lidocaine Gel Depth: Down to and including healthy tissue and in the subcutaneous layer Percentage of wound debrided: 100 Instrument Used: 7mm curette Tissue Removed: Fibrin devitalized tissue Severity: Fat Layer Exposed Amount of bleeding with debridement: Mild Bleeding Controlled with: Compression and gauze Patient tolerated procedure: Patient tolerated procedure well Post-Debridement Measurements and Additional Note: Post-Debridement Measurements/Treatment - Nurse 1 - General Ulcer Assessment Start: 01/06/24 10:46 Freq: Status: Active Protocol: HARIS Activity Type Activity Date Activity User E-sign Co-sign Detail Recorded Client Recorded Date Recorded By Document 01/06/24 10:47 ML [email or web address] 01/06/24 10:56 ML Document 01/20/24 11:11 RB WOUND 01/20/24 11:17 RB Document 02/03/24 10:51 RB wound 02/03/24 10:57 RB 01/06/24 01/20/24 02/03/24 10:47 11:11 10:51 - Today's Visit Information Type of service Follow-up Visit Follow-up Visit Follow-up Visit (Physician/DYE HOUSE WORKER (Physician/DYE HOUSE WORKER (Physician/DYE HOUSE WORKER ) ) ) Arrival Mode Ambulatory Ambulatory Ambulatory Transfer Assistance None None None Patient Identification Verified (Name & Yes Yes Yes ) Patient Requires Transmission-Based No No No Precautions Height and Weight Body Mass Index (BMI) 30.1 30.1 30.1 BMI Classification Obese Obese Obese Vital Signs Temperature (97.8 F-99.1 F) 98.2 F 97.9 F 97.7 F L Temperature Source Temporal Temporal Temporal Pulse Rate (60-100) 54 L 55 L 62 Pulse Location Monitor Monitor Monitor Respiratory Rate (12-18) 14 18 18 Respiratory rate source Observation Observation Observation Blood Pressure (90/60-120/80) 137/51 H 141/59 H 137/60 H Blood Pressure Mean (mm Hg) 79 86 85 Source Monitor Monitor Monitor Position Sitting Semi-Fowlers Semi-Fowlers Blood Pressure Location Left Arm Left Arm Left Arm History Since Last Visit- (Skip if this is Patient's initial visit) Have you changed medications since your No No No last visit? Any new allergies or adverse reactions No No No Had a fall/change in ADL's that may No No No increase risk of falls Signs or symptoms of abuse and/or No No No neglect since last visit Have you been in the hospital since your No No No last visit? Has dressing in place as prescribed Yes Yes Yes Has compression in place as prescribed N/A No No Has offloadiing in place as prescribed N/A No No Experienced any changes in pain level or No No No management Pain Scale: 0-10 Numeric Is Patient Pain Free? Yes Yes Yes WC - Nurse 1 - General Ulcer Measurement Start: 01/06/24 10:46 Freq: Status: Active Protocol: Activity Type Activity Date Activity User E-sign Co-sign Detail Recorded Client Recorded Date Recorded By Document 01/06/24 10:47 ML [email or web address] 01/06/24 10:56 ML Document 01/20/24 11:11 RB WOUND 01/20/24 11:17 RB Document 02/03/24 10:51 RB wound 02/03/24 10:57 RB 01/06/24 01/20/24 02/03/24 10:47 11:11 10:51 Wound Center Nurse 1 1. scrotum/ R buttocks/r groin CLUSTER -Combined with other wound No No -Current Size (cm) - Length 13.5 7 6.6 -Current Size (cm) - Width 0.3 1.5 1.1 -Current Size (cm) - Depth 0.5 0.1 0.1 -Total Square Cm 4.05 10.5 7.26 -Photo Taken Yes -Tunneling No No -Undermining/Tunneling No No -Circular Undermining No No -Exudate Amt Medium Large Medium -Exudate Type Serosanguineous Serosanguineous Serosanguineous -Wound Margin Distinct, Distinct, Outline Outline Attached Attached -Granulation Amt Medium (34-66%) Large (67-100%) Medium (34-66%) -Granulation Quality [place],Red [place] -Slough/Fibrin Yes Yes Yes -Necrosis Amt Medium (34-66%) Small (1-33%) Medium (34-66%) -Necrotic Tissue Type Adherent Slough Adherent Slough Adherent Slough -Structure Exposed N/A N/A -Texture (Amelie-wound Skin Appearance) No Abnormality Scarring Assessed, Scarring -Moisture (Amelie-wound Skin Appearance) No Abnormality Assessed Assessed -Color (Amelie-wound Skin Appearance) No Abnormality Assessed Assessed -Temperature (Amelie-wound Skin No Abnormality No Abnormality No Abnormality Appearance) (Pt Warm) (Pt Warm) (Pt Warm) -Tenderness on Palpation (Amelie-wound No No Skin Appearance) -Ulcer Cleansing Soap and Water Wound Cleanser Wound Cleanser -Foul Odor after Cleansing No No No -Anesthetic Used 4% Lidocaine 4% Lidocaine 4% Lidocaine Solution Solution Solution WC - Nurse 2 - General Ulcer CM Notes Start: 01/06/24 10:46 Freq: Status: Active Protocol: Activity Type Activity Date Activity User E-sign Co-sign Detail Recorded Client Recorded Date Recorded By Document 01/06/24 11:00 BM [email or web address] 01/06/24 11:03 BM Document 01/20/24 11:24 BMF [email or web address] 01/20/24 11:28 BMF Document 02/03/24 11:02 BMF [email or web address] 02/03/24 11:06 BMF 01/06/24 01/20/24 02/03/24 11:00 11:24 11:02 Wound Center Nurse 2 1. scrotum/ R buttocks/r groin CLUSTER -Time 11:01 11:24 11:04 -Correct Patient Yes Yes Yes -Correct Side, Site, Position Yes Yes Yes -Correct Procedure Yes Yes Yes -Procedure Performed Yes Yes Yes -Type of Procedure Debridement Debridement Debridement -Clinical Debridement Subcutaneous Subcutaneous Subcutaneous -Tissue Removed Subcutaneous Subcutaneous Subcutaneous -Post Debridement (cm) - Length 10 7.8 6 -Post Debridement (cm) - Width 3 2.2 1 -Post Debridement (cm) - Depth 0.1 0.1 0.1 -Total Square (Post) (cm) 30 17.16 6 -Area of Debridement (cm) - Length 10 7.8 6 -Area of Debridement (cm) - Width 3 2.2 1 -Total Square (Area) (cm) 30 17.16 6 -Tunneling No No No -Undermining/Tunneling No No No -Circular Undermining No No No -Wound/Ulcer Outcome Not Healed Not Healed Not Healed -Ulcer Cleansing Rinsed/ Rinsed/ Rinsed/ Irrigated with Irrigated with Irrigated with Saline Saline Saline -Foul Odor after Cleansing No No No -Bioengineered Tissue No No No -Bleeding Controlled with Pressure Pressure Pressure -Treatment Response Procedure Procedure Procedure Tolerated Well Tolerated Well Tolerated Well -Debridement - Subq, 1st 20sq cm Yes Yes Yes -Debridement, SubQ, ea addt'l 20sq cm 1 or part thereof Pain Scale: 0-10 Numeric Is Patient Pain Free? Yes Yes Yes - Nurse 3 - General Ulcer D/C NN Start: 01/06/24 10:46 Freq: Status: Active Protocol: Activity Type Activity Date Activity User E-sign Co-sign Detail Recorded Client Recorded Date Recorded By Document 01/06/24 11:11 [facility] [email or web address] 01/06/24 11:11 [facility] Document 01/20/24 11:31 RB WOUND 01/20/24 11:32 RB Document 02/03/24 11:15 RB wound 02/03/24 11:16 RB 01/06/24 01/20/24 02/03/24 11:11 11:31 11:15 Wound Care Center Nurse 3 1. scrotum/ R buttocks/r groin CLUSTER -Ulcer Cleansing Rinsed/ Rinsed/ Irrigated with Irrigated with Saline Saline -Foul Odor after Cleansing No -Primary Dressing Applied Fibracol Plus Fibracol Plus Fibracol Plus 4x4 4x4 4x4 -Other Dressing abd ABD pad ABD -Primary Dressing Covered/Secured with Secured with Tape -Fibracol Plus 4x4 1 1 1 Treatment Response Procedure Procedure Procedure Tolerated Well Tolerated Well Tolerated Well Pain Scale: 0-10 Numeric Is Patient Pain Free? Yes Yes Yes Teaching: Wound Center Dressing Your Wound -Person Taught Patient -Teaching Method Discussion, Demonstration -Response to teaching Verbalize understanding WC - Visit Discharge Discharge Condition Stable Stable Stable Ambulatory Status Ambulatory Ambulatory Ambulatory Transportation Private Auto Private Auto Private Auto Accompanied by Medication Reconcilliation completed & No No provided to patient/care provider Clinical Summary of Care Provided Yes Yes Facility Type Home Health Assessment/Plan Assessment/Plan (1) Necrotizing fasciitis: CODE(S): M72.6 - Necrotizing fasciitis (2) Nonhealing surgical wound: CODE(S): T81.89XA - Other complications of procedures, not elsewhere classified, initial encounter QUALIFIERS: Encounter type: initial encounter Qualified Code(s): T81.89XA - Other complications of procedures, not elsewhere classified, initial encounter PLAN: Wash perineal area with antibacterial soap in the shower pat dry Apply Fibracol to wound area cover with gauze and ABDs Daily and follow-up in 2 weeks (3) Hyperglycemia due to type 2 diabetes mellitus: CODE(S): E11.65 - Type 2 diabetes mellitus with hyperglycemia QUALIFIERS: Diabetes mellitus director business management insulin use: without care home use Qualified Code(s): E11.65 - Type 2 diabetes mellitus with hyperglycemia (4) Infected open wound: CODE(S): T14.8XXA - Other injury of unspecified body region, initial encounter; L08.9 - Local infection of the skin and subcutaneous tissue, unspecified PLAN: Will continue monitoring patient for any kind of infection
== END 2024-02-03 23:59 | disposition home or self-care (01) ==
LOC: WC 10:30
PROVIDERS: PCP Family Medicine; Referring Provider Family Medicine; Visit Provider Nurse Practitioner
DX: M72.6 Necrotizing fasciitis (principal); E11.65 Type 2 diabetes mellitus with hyperglycemia; T81.89XA Other complications of procedures, not elsewhere classified, initial encounter; L08.9 Local infection of the skin and subcutaneous tissue, unspecified; Y84.9 Medical procedure, unspecified as the cause of abnormal reaction of the patient, or of later complication, without mention of misadventure at the time of the procedure
CPT/HCPCS: 11042; 11045

== ENCOUNTER 2024-02-24 10:39 | Outpatient (RCR) | payer MEDICARE, SELFPAY ==
[2024-02-04 00:20] VITALS: BP 150/60; PULSE 56; RESP 18; TEMP 35.9; BMI 30.1
[2024-02-24 10:57] VITALS: BP 152/65; PULSE 53; RESP 18; TEMP 36.9; BMI 30.1
--- NOTE | 2024-02-24 13:12 | PCM.WC.PN ---
History of Present Illness Date of Service: 02/24/24 Chief Complaint: Follow-up for surgical removal of necrotizing fasciitis of perianal and scrotal area. History of Wound: 68-year-old white male on September 22 had surgery at [facility] for necrotizing fasciitis of the perineum and scrotum. Patient states it started about 2 weeks prior that they thought he had a prostate infection and then it just turned started turning black. He has had about 3 surgeries for removal of the necrotic tissue. And at this time is using Vashi to wet-to-dry as treatment. Has been done with antibiotics since mid September according to records. We will reculture today. The area starts in the right scrotum and goes down into the right buttocks cheek near the rectum. We obtained wound cultures today Progress of Wound: The wound used to extend all the way from the groin all the way into his ischium and now it is only the small section of the ischium that needs to be healed closed. Still has about the size of a $0.50 piece area that needs to be close down. No depth no redness no sign of infection no odor Subjective Subjective Patient is an upset because he wants a reversal of his colostomy and he can have it done until he heals his wounds. Objective Data Objective Data We will follow him up in 2 weeks though he is not happy about that but it will take about another 2 weeks for him to heal but the Fibracol is working well and I think he just needs to get it down into that open area down by his ischium and he should be good and healed Vital Signs: Vital Signs Temp Pulse Resp BP 98.5 F 53 L 18 152/65 H 02/24/24 10:57 02/24/24 10:57 02/24/24 10:57 02/24/24 10:57 Weight: 210 lb Body Mass Index (BMI) 30.1 Lab / Micro Data Attestation: I reviewed the patient's lab results. Physical Exam Const oriented x3 General Appearance: cooperative Exam Limitations: no limitations HEENT normocephalic Head and Scalp: normal to inspection Face and Sinus: normal facial exam Eyes PERRL Neck full ROM Resp normal respiratory effort Effort and Inspection: able to speak in complete sentences Auscultation: clear to auscultation bilaterally Cardio regular rate and regular rhythm Palpation: normal PMI Rate: regular rate Rhythm: regular rhythm Back/Spine Cervical Spine: cervical ROM normal Extremity normal to inspection Skin Wounds: wounds noted Wound Narrative: Open wound from surgery performed September 25 for necrotizing fasciitis from right scrotum to the right buttocks cheek Neuro oriented x3 Psych Appearance: grossly normal Speech: normal speech Thought Content: normal thought content Judgement: judgement good Debridement Note Debridement Note Wound debrided: Groin cluster Laterality: Right Type of Debridement: Excisional debridement Anesthesia Used: 5% Lidocaine Gel Depth: Down to and including healthy tissue and in the subcutaneous layer Percentage of wound debrided: 100 Instrument Used: 7mm curette Tissue Removed: Fibrin devitalized tissue Severity: Fat Layer Exposed Amount of bleeding with debridement: Mild Bleeding Controlled with: Compression and gauze Patient tolerated procedure: Patient tolerated procedure well Post-Debridement Measurements and Additional Note: Post-Debridement Measurements/Treatment - Nurse 1 - General Ulcer Assessment Start: 02/24/24 10:57 Freq: Status: Active Protocol: .ISAAC Activity Type Activity Date Activity User E-sign Co-sign Detail Recorded Client Recorded Date Recorded By Document 02/24/24 10:57 [id number] 02/24/24 11:01 02/24/24 10:57 - Today's Visit Information Type of service Follow-up 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 ) Arrival Mode Ambulatory Transfer Assistance None Patient Identification Verified (Name & Yes ) Patient Requires Transmission-Based No Precautions Height and Weight Body Mass Index (BMI) 30.1 BMI Classification Obese Vital Signs Temperature (97.8 F-99.1 F) 98.5 F Temperature Source Temporal Pulse Rate (60-100) 53 L Pulse Location Monitor Respiratory Rate (12-18) 18 Respiratory rate source Observation Blood Pressure (90/60-120/80) 152/65 H Blood Pressure Mean (mm Hg) 94 Source Monitor Position Semi-Fowlers Blood Pressure Location Left Arm History Since Last Visit- (Skip if this is Patient's initial visit) Have you changed medications since your No last visit? Any new allergies or adverse reactions No Had a fall/change in ADL's that may No increase risk of falls Signs or symptoms of abuse and/or No neglect since last visit Have you been in the hospital since your No last visit? Has dressing in place as prescribed Yes Has compression in place as prescribed No Has offloadiing in place as prescribed No Experienced any changes in pain level or No management Pain Scale: 0-10 Numeric Is Patient Pain Free? Yes - Nurse 1 - General Ulcer Measurement Start: 02/24/24 10:57 Freq: Status: Active Protocol: Activity Type Activity Date Activity User E-sign Co-sign Detail Recorded Client Recorded Date Recorded By Document 02/24/24 10:57 [id number] 02/24/24 11:01 02/24/24 10:57 Wound Center Nurse 1 1. scrotum/ R buttocks/r groin CLUSTER -Combined with other wound No -Current Size (cm) - Length 0.1 -Current Size (cm) - Width 0.1 -Current Size (cm) - Depth 0.1 -Total Square Cm 0.01 -Photo Taken Yes -Tunneling No -Undermining/Tunneling No -Circular Undermining No -Exudate Amt Small -Exudate Type Serosanguineous -Wound Margin Distinct, Outline Attached -Granulation Amt Large (67-100%) -Granulation Quality Phelps -Slough/Fibrin Yes -Necrosis Amt Small (1-33%) -Necrotic Tissue Type Adherent Slough -Structure Exposed N/A -Texture (Amelie-wound Skin Appearance) Assessed, Scarring -Moisture (Amelie-wound Skin Appearance) Assessed -Color (Amelie-wound Skin Appearance) Assessed -Temperature (Amelie-wound Skin No Abnormality Appearance) (Pt Warm) -Tenderness on Palpation (Amelie-wound No Skin Appearance) -Ulcer Cleansing Wound Cleanser -Foul Odor after Cleansing No -Anesthetic Used 5% Lidocaine Gel - Nurse 2 - General Ulcer CM Notes Start: 02/24/24 10:57 Freq: Status: Active Protocol: Activity Type Activity Date Activity User E-sign Co-sign Detail Recorded Client Recorded Date Recorded By Document 02/24/24 11:05 [facility] [id number] 02/24/24 11:09 [facility] 02/24/24 11:05 Wound Center Nurse 2 -Time 11:06 -Correct Patient Yes -Correct Side, Site, Position Yes -Correct Procedure Yes -Procedure Performed Yes -Type of Procedure Debridement -Clinical Debridement Subcutaneous -Tissue Removed Subcutaneous -Post Debridement (cm) - Length 2 -Post Debridement (cm) - Width 1 -Post Debridement (cm) - Depth 0.1 -Total Square (Post) (cm) 2 -Area of Debridement (cm) - Length 2 -Area of Debridement (cm) - Width 1 -Total Square (Area) (cm) 2 -Tunneling No -Undermining/Tunneling No -Circular Undermining No -Wound/Ulcer Outcome Not Healed -Ulcer Cleansing Rinsed/ Irrigated with Saline -Foul Odor after Cleansing No -Bleeding Controlled with Pressure -Treatment Response Procedure Tolerated Well -Offloading No -Debridement - Subq, 1st 20sq cm Yes Pain Scale: 0-10 Numeric Is Patient Pain Free? Yes - Nurse 3 - General Ulcer D/C NN Start: 02/24/24 10:57 Freq: Status: Active Protocol: Activity Type Activity Date Activity User E-sign Co-sign Detail Recorded Client Recorded Date Recorded By Document 02/24/24 11:32 DL [id number] 02/24/24 11:33 DL 02/24/24 11:32 Wound Care Center Nurse 3 1. scrotum/ R buttocks/r groin CLUSTER -Ulcer Cleansing Rinsed/ Irrigated with Saline -Primary Dressing Applied Fibracol Plus 4x4 -Primary Dressing Covered/Secured with Dry Gauze -Fibracol Plus 4x4 1 Treatment Response Procedure Tolerated Well Pain Scale: 0-10 Numeric Is Patient Pain Free? Yes - Visit Discharge Discharge Condition Stable Ambulatory Status Ambulatory Transportation [facility] Facility Type Home Health Orders Sent Yes Assessment/Plan Assessment/Plan (1) Necrotizing fasciitis: CODE(S): M72.6 - Necrotizing fasciitis (2) Nonhealing surgical wound: CODE(S): T81.89XA - Other complications of procedures, not elsewhere classified, initial encounter QUALIFIERS: Encounter type: initial encounter Qualified Code(s): T81.89XA - Other complications of procedures, not elsewhere classified, initial encounter PLAN: Wash perineal area with antibacterial soap in the shower pat dry Apply Fibracol to wound area cover with gauze and ABDs Daily and follow-up in 2 weeks (3) Hyperglycemia due to type 2 diabetes mellitus: CODE(S): E11.65 - Type 2 diabetes mellitus with hyperglycemia QUALIFIERS: 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
== END 2024-03-05 23:59 | disposition home or self-care (01) ==
LOC: WC 10:39
PROVIDERS: PCP Family Medicine; Referring Provider Family Medicine; Visit Provider Nurse Practitioner
DX: M72.6 Necrotizing fasciitis (principal); E11.65 Type 2 diabetes mellitus with hyperglycemia; L08.9 Local infection of the skin and subcutaneous tissue, unspecified; T81.89XA Other complications of procedures, not elsewhere classified, initial encounter; Y84.9 Medical procedure, unspecified as the cause of abnormal reaction of the patient, or of later complication, without mention of misadventure at the time of the procedure
CPT/HCPCS: 11042

== ENCOUNTER 2024-03-09 10:17 | Outpatient (RCR) | payer MEDICARE, SELFPAY ==
[2024-03-06 00:16] VITALS: BP 150/60; PULSE 56; RESP 18; TEMP 35.9; BMI 30.1
[2024-03-09 10:25] VITALS: BP 155/51; PULSE 54; RESP 16; TEMP 36.1; BMI 30.1
== END 2024-03-09 12:00 | disposition home or self-care (01) ==
LOC: WC 10:17
PROVIDERS: PCP Family Medicine; Referring Provider Family Medicine; Visit Provider Nurse Practitioner
DX: M72.6 Necrotizing fasciitis (principal); E11.65 Type 2 diabetes mellitus with hyperglycemia; T81.89XA Other complications of procedures, not elsewhere classified, initial encounter; T14.8XXA Other injury of unspecified body region, initial encounter
CPT/HCPCS: 99212; G0463